=== PATIENT | female | born 1950 | race African-American/Black ===

== ENCOUNTER → 2016-04-29 | Outpatient (CLI) | payer OTHER ==
[2016-01-25 17:00] VITALS: BP 152/74
[~2016-04-29] MED LIST: AMLO10TA2 PO; ASPI81TA2 PO; ATOR40TA59 PO; CHLO25TA PO; CYCL10TA2 PO; LISI40TA PO; MELO-150 PO; METO-269 PO; MONT10TA6 PO; OMEG1CAP16 PO; POTA10TA10 PO; RANI150T2 PO
--- NOTE | 2016-04-29 13:29 | RAD ---
DATE: 04/29/16 EXAM: DIGITAL SCREEN BILAT W/CAD HISTORY: Routine screening COMPARISON: 04/14/12 This study was interpreted with the benefit of Computerized Aided Detection (CAD). TECHNIQUE: Routine CC and MLO views of both breasts are obtained. FINDINGS: The breast tissue density is [B ] . Scattered fibroglandular densities are seen bilaterally. There are no dominant suspicious masses, suspicious microcalcifications or evidence of architectural distortion. There are stable nodules in the right breast, unchanged since previous study. Skin and nipples are intact IMPRESSION: Benign findings BI-RADS CATEGORY: 2 BENIGN FINDING(S) RECOMMENDED FOLLOW-UP: 12M 12 MONTH FOLLOW-UP PQRS compliance statement: Patient information was entered into a reminder system with a target due date for the next mammogram. Mammography is a sensitive method for finding small breast cancers, but it does not detect them all and is not a substitute for careful clinical examination. A negative mammogram does not negate a clinically suspicious finding and should not result in delay in biopsying a clinically suspicious abnormality. "Our facility is accredited by the [employer] Mammography [employer]."
== END | disposition home or self-care (01) ==
LOC: MAMMO 08:40
PROVIDERS: ATTEND Physician Assistant Surgical
DX: Z12.31 Encounter for screening mammogram for malignant neoplasm of breast (principal)
CPT/HCPCS: G0202; 77067

== ENCOUNTER → 2017-03-05 | Outpatient (CLI) | payer OTHER ==
[2016-01-25 17:00] VITALS: BP 152/74
[~2017-03-05] MED LIST changes: +ASPI-630 PO; -ASPI81TA2 PO; -MELO-150 PO; +MELO15TA23 PO; -OMEG1CAP16 PO; +OMEG1CAP27 PO; -POTA10TA10 PO; +POTA10TA12 PO
--- NOTE | 2017-03-05 12:27 | CARD ---
APPROVED REPORT EXAM: Two-dimensional and M-mode echocardiogram with Doppler and color Doppler. Other Information Quality : Good INDICATION Cardiac Disease: 2D DIMENSIONS Left Atrium(2D)4.4 (1.6-4.0cm)IVSd1.4 (0.7-1.1cm) Aortic Root(2D)3.2 (2.0-3.7cm)LVDd5.7 (3.9-5.9cm) LVOT Diameter2.0 (1.8-2.4cm)PWd1.3 (0.7-1.1cm) LVDs3.8 (2.5-4.0cm)FS (%) 32.7 % SV95.5 mlLVEF(%)60.4 (>50%) Aortic Valve AoV Peak Merlin.124.9cm/sAoV VTI31.4cm AO Peak GR.6.2mmHgLVOT Peak Merlin.101.5cm/s AO Mean GR.4mmHgAVA (VMAX)2.60cm2 GURINDER (VTI)2.20cm2 Mitral Valve MV E Wtfipqyk62.2cm/sMV DECEL KMSP428fe MV A Juricipu05.9cm/sE/A Ratio0.7 Tricuspid Valve TR P. Ofykswnc347yw/sRAP UMJBRFXB8uvYu TR Peak Gr.37psOqCSPD59jkRk LEFT VENTRICLE The left ventricle is normal size. There is mild concentric left ventricular hypertrophy. Left ventri eli systolic function is normal. The Ejection Fraction is 55-60%. There is normal LV segmental wall m otion. Transmitral Doppler flow pattern is normal for age. RIGHT VENTRICLE The right ventricle is normal size. The right ventricular systolic function is normal. ATRIA The left atrium size is normal. The right atrium size is normal. The interatrial septum is intact wit h no evidence for an atrial septal defect or patent foramen ovale as noted on 2-D or Doppler imaging. AORTIC VALVE The aortic valve is calcified but opens well. Doppler and Color Flow revealed no significant aortic r egurgitation. There is no significant aortic valvular stenosis. MITRAL VALVE The mitral valve is mildly thickened. There is no evidence of mitral valve prolapse. There is no mitr al valve stenosis. Doppler and Color-flow revealed trace mitral regurgitation. TRICUSPID VALVE The tricuspid valve is normal in structure and function. Doppler and Color Flow revealed trace to mil d tricuspid regurgitation. The PA pressure was estimated at 20 mmHg. There is no tricuspid valve prol apse or vegetation. There is no tricuspid valve stenosis. PULMONIC VALVE The pulmonic valve is borderline thickened. Doppler and Color Flow revealed trace to mild pulmonic va lvular regurgitation. There is no pulmonic valvular stenosis. GREAT VESSELS The aortic root is normal in size. The ascending aorta is normal in size. The IVC is normal in size a nd collapses >50% with inspiration. PERICARDIAL EFFUSION There is no pleural effusion. There is no evidence of significant pericardial effusion. Critical Notification Critical Value: No <Conclusion> The left ventricle is normal size. Left ventricle systolic function is normal. The Ejection Fraction is 55-60%. There is mild concentric left ventricular hypertrophy. There is no significant aortic valvular stenosis. Doppler and Color Flow revealed no significant aortic regurgitation. Doppler and Color-flow revealed trace mitral regurgitation. Doppler and Color Flow revealed trace to mild tricuspid regurgitation. The PA pressure was estimated at 20 mmHg.
--- NOTE | 2017-03-05 14:44 | RAD ---
APPROVED REPORT Patient Location: OUT-PATIENT Laterality:Bilateral Indications Bruit Doppler Spectral Velocity Analysis Right Left pCCA 74/16 cm/spCCA 108/27 cm/s mCCA 85/22 cm/smCCA 86/25 cm/s dCCA 85/25 cm/sdCCA 84/26 cm/s Bulb 71/18 cm/sBulb 144/36 cm/s ECA 88/ cm/sECA 217/ cm/s pICA 63/16 cm/spICA 144/32 cm/s Carmen 47/15 cm/smICA 131/26 cm/s dICA 64/21 cm/sdICA 99/36 cm/s Vert. 73/ cm/sVert. 116/ cm/s Subcl. 97/ cm/sSubcl. 154/ cm/s ICA/CCA 0.75ICA/CCA 1.33 Findings Grayscale images of the right common carotid, internal carotid and external cart arteries reveals min imal intimal hyperplasia without any obstructive plaque. Spectral waveforms and color Doppler do not show any evidence of high-grade stenosis. Overall less than 0-50% stenosis. The grayscale images of the left common carotid and internal carotid vessels reveals moderate anthrac otic plaque at the level of the carotid bulb extending into the proximal ICA. Based on spectral wavef orms and color Doppler/velocity criteria there is approximately a 50-69% stenosis involving the proxi mal internal carotid artery. Likely the noted is also a greater than 50% stenosis involving the left external carotid artery. The bilateral vertebral artery flows are antegrade. Critical Notification Critical Value: No <Conclusion> 1. Moderate left internal cardio artery stenosis. 2. Antegrade bilateral vertebral velocities.
== END | disposition home or self-care (01) ==
LOC: ECHO 08:54
PROVIDERS: ATTEND Internal Medicine Cardiovascular Disease
DX: I25.10 Atherosclerotic heart disease of native coronary artery without angina pectoris (principal); I77.1 Stricture of artery; I51.7 Cardiomegaly; R09.89 Other specified symptoms and signs involving the circulatory and respiratory systems
CPT/HCPCS: 93306; 93880

== ENCOUNTER 2017-04-21 08:04 | Emergency (ER) | payer OTHER ==
[2017-04-21 08:53] LABS: HEMATOCRIT 40.7 % (36.0-47.0); HEMOGLOBIN 12.9 g/dL (12.0-15.5); MEAN CORPUSCULAR HEMOGLOBIN 23 pg (25-35); MEAN CORPUSCULAR HGB CONC 32 g/dL (31-37); MEAN CORPUSCULAR VOLUME 71 fL (79-100); PLATELET COUNT 239 x10^3/uL (140-400); RED BLOOD COUNT 5.74 x10^6/uL (3.50-5.40); RED CELL DISTRIBUTION WIDTH 16.2 % (11.5-14.5); WHITE BLOOD COUNT 6.5 x10^3/uL (4.0-11.0)
[2017-04-21 08:57] LABS: ANION GAP 14 (6-14); BLOOD UREA NITROGEN 12 mg/dL (7-20); BUN/CREATININE RATIO 20 (6-20); CARBON DIOXIDE 24 mmol/L (21-32); CHLORIDE 102 mmol/L (98-107); CREATININE 0.6 mg/dL (0.6-1.0); GLUCOSE 140 mg/dL (70-99); POTASSIUM 3.3 mmol/L (3.5-5.1); SODIUM 140 mmol/L (136-145)
[2017-04-21 09:03] LABS: ALBUMIN 3.7 g/dL (3.4-5.0); ALBUMIN/GLOBULIN RATIO 0.9 (1.0-1.7); ALK PHOS 111 U/L (46-116); ALT (SGPT) 30 U/L (14-59); AST (SGOT) 24 U/L (15-37); TOTAL BILIRUBIN 0.4 mg/dL (0.2-1.0)
[2017-04-21 09:04] LABS: INR 0.9 (0.8-1.1); PARTIAL THROMBOPLASTIN TIME 50 SEC (24-38); PROTHROMBIN TIME PATIENT 11.8 SEC (11.7-14.0)
[2017-04-21] MEDS: IV NORMAL SALINE 1000ML BAG 1,000 ML IV ×2 (09:10)
[2017-04-21] MEDS: LABETALOL 20 MG/4 ML DISP.SYRIN. IVP ×4 (09:12→11:05)
[2017-04-21] MEDS: POTASSIUM CHLORIDE 20 MEQ TABLET.ER. PO ×2 (11:09)
== END 2017-04-21 11:52 | disposition home or self-care (01) ==
LOC: ER 08:04
DX: I10 Essential (primary) hypertension (principal); R20.0 Anesthesia of skin
CPT/HCPCS: 36415; 70450; 71045; 80053; 85027; 85610; 85730; 93005; 96361; 96374; 99285-25; J3490; J7030

== ENCOUNTER 2017-07-04 08:11 | Emergency (ER) | payer OTHER | END 2017-07-04 08:53 | disposition home or self-care (01) | LOC: ER 08:11 | DX: I10 Essential (primary) hypertension (principal); I25.10 Atherosclerotic heart disease of native coronary artery without angina pectoris; F12.10 Cannabis abuse, uncomplicated; I25.2 Old myocardial infarction | CPT/HCPCS: 99283 ==

== ENCOUNTER 2017-08-02 15:08 | Emergency (ER) | payer OTHER ==
[2017-08-02] MEDS: IBUPROFEN 800 MG TABLET. PO (16:07)
== END 2017-08-02 17:02 | disposition home or self-care (01) ==
LOC: ER 17:02
DX: S39.012A Strain of muscle, fascia and tendon of lower back, initial encounter (principal); F12.10 Cannabis abuse, uncomplicated; I10 Essential (primary) hypertension; I25.2 Old myocardial infarction; Z86.73 Personal history of transient ischemic attack (TIA), and cerebral infarction without residual deficits; Z90.710 Acquired absence of both cervix and uterus; V43.52XA Car driver injured in collision with other type car in traffic accident, initial encounter; Y93.89 Activity, other specified; Y99.8 Other external cause status; Y92.410 Unspecified street and highway as the place of occurrence of the external cause
CPT/HCPCS: 72100; 99284

== ENCOUNTER → 2018-01-08 | Outpatient (CLI) | payer OTHER ==
[2017-08-02 15:50] VITALS: BP 125/59
[~2018-01-08] MED LIST changes: -AMLO10TA2 PO; +AMLO10TA6 PO; +HYDR-2868 PO; +LISI-130 PO; -LISI40TA PO; +LOSA100T7 PO; +METO-239 PO; +OMEP20TA63 PO
--- NOTE | 2018-01-08 11:06 | KCIC ---
EXAM: Bilateral digital screening mammogram with tomosynthesis. HISTORY: 67-year-old female presents for screening mammography. TECHNIQUE: Full-field digital craniocaudal and mediolateral oblique 2D and 3D tomosynthesis images of both breasts are obtained for evaluation. Computer aided detection with [employer] software version 9.3 was applied. COMPARISON: 04/29/2016 BREAST PARENCHYMAL DENSITY: Level B - Scattered fibroglandular densities. FINDINGS: There is no new suspicious mass, microcalcification or region of architectural distortion. IMPRESSION: BI-RADS Category 2: Benign finding(s). RECOMMENDATION: Annual mammography is recommended. If your mammogram demonstrates that you have dense breast tissue, which could hide abnormalities, and if you have other risk factors for breast cancer that have been identified, you might benefit from supplemental screening tests that may be suggested by your ordering physician. Dense breast tissue, in and of itself, is a relatively common condition. This information is not provided to cause undue concern, but rather to raise your awareness and to promote discussion with your physician regarding the presence of other risk factors, in addition to dense breast tissue. A report of your mammography results will be sent to you and your physician. You should contact your physician if you have any questions or concerns regarding this report. Mammography is a sensitive method for finding small breast cancers, but it does not detect them all and is not a substitute for careful clinical examination. A negative mammogram does not negate a clinically suspicious finding and should not result in delay in biopsying a clinically suspicious abnormality. PQRS compliance statement - Patient information was entered into a reminder system with a target due date for the next mammogram. "Our facility is accredited by the [employer] Mammography [employer]." Electronically signed by: Elsi Ervin MD (01/08/2018 11:03 AM) [facility]
--- NOTE | 2018-01-08 15:35 | KCIC ---
DEXA scan 01/08/2018 Clinical History: Postmenopausal female. Risk factors for osteoporosis. Technique: DEXA of the lumbar spine and left hip was performed. FINDINGS: No previous studies are available for comparison. The bone mineral density of the lumbar spine is 1.354 g/cm2 which corresponds with a T-score of 2.8 . This is within normal limits. The mean bone mineral density of the left hip is 0.986 g/sq cm. This corresponds to a T score of 0.4. This is within normal limits. By World Congress on Osteoporosis criteria, a T score of 0 to-1 SD is considered to be within normal limits. A T score of -1 to -2.5 SD is considered osteopenia. A T score less than -2.5 SD is considered osteoporosis Impression: The patient's mean bone mineral densities are within normal limits. Electronically signed by: Raymond Gonzalez MD (01/08/2018 3:32 PM) [facility]
== END | disposition home or self-care (01) ==
LOC: KCIC DEXA 08:38
PROVIDERS: ATTEND Physician Assistant Surgical
DX: Z12.31 Encounter for screening mammogram for malignant neoplasm of breast (principal); Z13.820 Encounter for screening for osteoporosis; F12.90 Cannabis use, unspecified, uncomplicated; Z78.0 Asymptomatic menopausal state; Z87.891 Personal history of nicotine dependence
CPT/HCPCS: 77063; 77067; 77080

== ENCOUNTER → 2018-01-27 | Outpatient (CLI) | payer OTHER ==
[2017-08-02 15:50] VITALS: BP 125/59
--- NOTE | 2018-01-27 12:17 | RAD ---
MR#: [id number] Date of Study: 01/27/2018 Ordering Physician: LILLIANA MARTINEZ, Referring Physician: LILLIANA MARTINEZ, Tech: Enrique Flores MBA, RDMS, RVT, RDCS, RTR APPROVED REPORT Patient Location: OUT-PATIENT Laterality:Bilateral Indications LT CAROTID STENOSIS Doppler Spectral Velocity Analysis Right Left pCCA 94/15 cm/spCCA 100/21 cm/s mCCA 74/16 cm/smCCA 79/20 cm/s dCCA 65/18 cm/sdCCA 79/21 cm/s Bulb 61/17 cm/sBulb 165/31 cm/s ECA 82/ cm/sECA 238/ cm/s pICA 53/17 cm/spICA 137/23 cm/s Carmen 45/15 cm/smICA 108/22 cm/s dICA 68/23 cm/sdICA 93/24 cm/s Vert. 52/ cm/sVert. 79/ cm/s Subcl. 79/ cm/sSubcl. 77/ cm/s ICA/CCA 0.72ICA/CCA 1.37 Findings Grayscale images of the bilateral common carotid, internal and external carotid reveal approximately mild and moderate bifurcation disease on the right and left respectively. Spectral waveforms and color Doppler on the right side are within normal limits and are suggestive ov erall of 0 to less than 50% stenosis by velocity criteria. ICA to CCA ratios are within normal limits . The vertebral velocity is antegrade. On the left there are elevated velocities in the carotid bifurcation suggestive of 50-69% stenosis. N o focal high-grade stenosis is noted in the common carotid and internal carotid vessels. There is lik brayan greater than 70% stenosis involving the left external carotid artery. ICA to CCA ratios are mildl y elevated on the left side. The vertebral velocity is antegrade. Critical Notification Critical Value: No <Conclusion> 1. No significant right-sided carotid arterial disease. 2. Probable moderate approximately 50-69% stenosis by velocity criteria involving the left carotid bi furcation extending into the proximal internal and external carotid vessels. Signed by : Mau Guardado, Electronically Approved : 01/27/2018 12:17:02
== END | disposition home or self-care (01) ==
LOC: US 06:33
PROVIDERS: ATTEND Internal Medicine Cardiovascular Disease
DX: I65.22 Occlusion and stenosis of left carotid artery (principal)
CPT/HCPCS: 93880

== ENCOUNTER → 2018-08-09 | Outpatient (CLI) | payer OTHER ==
[2017-08-02 15:50] VITALS: BP 125/59
[~2018-08-09] MED LIST changes: -AMLO10TA6 PO; +AMLO10TA8 PO; -CHLO25TA PO; +CHLO25TA10 PO; +LOSA100T14 PO; -LOSA100T7 PO; +REGADENOSON 0.4 MG/5 ML DISP.SYRIN. IV ONE
--- NOTE | 2018-08-09 14:09 | RAD ---
MR#: [id number] Date of Study: 08/09/2018 Ordering Physician: LILLIANA MARTINEZ Referring Physician: REJI YORK Tech: RT Andree (R) (N) APPROVED REPORT Test Type: Pharmacological Stress Nurse/Tech: Pedro SUN Test Indications: Coronary Artery Disease Cardiac History: Cardiac cath in 1999 w/ 3 stents placed, HTN, See EMR Medications: ASA 81mg, See EMR Medical History: DM, X-Smoker quit 22 yrs ago Resting ECG: SR w/ prolonged CT interval Resting Heart Rate: 54 bpm Resting Blood Pressure: 133/76mmHg Pretest Chest Pain: No chest pain Nurse/Tech Notes Lungs CTA, Heart tones Regular. Consent: The procedure was explained to the patient in lay terms. Informed consent was witnessed. Kayode eout was entered into [employer]. History and Stress Test performed by ANDREA Mauricio Pharm. Details Pharmacologic stress testing was performed using 0.4mg per 5ml of regadenoson given intravenously ove r 7-10 seconds. Stress Symptoms Nausea POST EXERCISE Reason for Termination: Infusion complete Max HR: 93 bpm Max Blood Pressure: 146/73mmHg Blood Pressure response to exercise: Normal blood pressure response during stress. Chest Pain: No. Arrhythmia: No. ST Change: No. INTERPRETATION Stress EKG Conclusion: The resting EKG shows a mild sinus bradycardia with mild nonspecific ST-T wave changes. Stress EKG shows no significant changes from baseline. No EKG evidence of stressed induced ischemia. Imaging Protocol IMAGE PROTOCOL: Rest Tc-99m/stress Tc-99m 1 day Rest: Stress: Viability: Radiopharm.Tc99m FngvunmrfLr46v Sestamibi Dose9.5mCi 33mCi Duration 15min. 10min. Img Date 08/09/2018 08/09/2018 Inj-Img Ogrk56lwf. 45min. Rest Admin Site:IV - Right AntecubitalAdministrator:RT Andree (R)(N) Stress Admin Site: IV - Right AntecubitalAdministrator: ANDREA Mauricio STRESS DATA End Diast. Vol.106.0mlAv. Heart Rate66.0bpm End Syst. Vol.28.0mlCO Index BSA0.0L/min Myocardial Hjyf363.0gEject. Ntyxnexm17.0% Stress Rates Pk. Fill Rate2.60EDV/secLVtime Pk. Fill 238.79msec Pk. Empty Rate3.54ESV/secLVtime Pk. Icnes156.85msec 1/3 Pk. Fill1.09EDV/sec Stress Scores Regional WT0.00Summed WT7.00 Regional WM0.00Summed WM0.00 LV Perfusion Stress scans showed no significant defects. Rest scans showed no significant defects. Nuclear imaging shows no reversible ischemia or infarct. Wall Motion Left ventricular systolic function is normal with no wall motion abnormalities and an ejection fracti on of greater than 70%. LV Perf. Quant 17 Seg. SSS0.00 17 Seg. SRS0.00 17 Seg. SDS0.00 Stress Defect Extent (% LAD)0.00Rest Defect Extent (% LAD)0.00Rev. Defect Extent (% LAD)0.00 Stress Defect Extent (% LCX) 0.00Rest Defect Extent (% LCX)0.00Rev. Defect Extent (% LCX)0.00 Stress Defect Extent (% RCA)0.00Rest Defect Extent (% RCA)0.00Rev. Defect Extent (% RCA)0.00 Stress Defect Extent (% ELICEO)0.00Rest Defect Extent (% ELICEO)0.00Rev. Defect Extent (% ELICEO)0.00 Conclusion 1. Mildly abnormal baseline EKG but no EKG evidence of stressed induced ischemia. 2. Nuclear imaging shows no reversible ischemia or infarct. 3. Normal left ventricular systolic function with an ejection fraction of greater than 70%. 4. Moderately low risk Lexiscan nuclear stress test. Signed by : Tripp Toro MD Electronically Approved : 08/09/2018 14:08:30
== END | disposition home or self-care (01) ==
LOC: NM 06:51
PROVIDERS: ATTEND Internal Medicine Cardiovascular Disease
DX: R00.1 Bradycardia, unspecified (principal); I10 Essential (primary) hypertension; I25.10 Atherosclerotic heart disease of native coronary artery without angina pectoris; Z95.818 Presence of other cardiac implants and grafts; Z87.891 Personal history of nicotine dependence
CPT/HCPCS: 78452; 93017; A9500; J2785

== ENCOUNTER → 2018-08-09 | Outpatient (CLI) | payer OTHER ==
[2017-08-02 15:50] VITALS: BP 125/59
[~2018-08-09] MED LIST changes: -REGADENOSON 0.4 MG/5 ML DISP.SYRIN. IV ONE
--- NOTE | 2018-08-09 14:41 | CARD ---
MR#: [id number] Date of Study: 08/09/2018 Ordering Physician: LILLIANA MARTINEZ, Referring Physician: LILLIANA MARTINEZ Tech: Anna Oh RDCS APPROVED REPORT EXAM: Two-dimensional and M-mode echocardiogram with Doppler and color Doppler. Other Information Quality : Good INDICATION Cardiac Disease: CAD 2D DIMENSIONS RVDd3.1 (2.9-3.5cm)Left Atrium(2D)3.4 (1.6-4.0cm) IVSd0.9 (0.7-1.1cm)Aortic Root(2D)3.2 (2.0-3.7cm) LVDd5.4 (3.9-5.9cm)LVOT Diameter2.2 (1.8-2.4cm) PWd0.8 (0.7-1.1cm)LVDs4.2 (2.5-4.0cm) FS (%) 30.0 %SV65.9 ml Aortic Valve AoV Peak Merlin.146.1cm/sAoV VTI30.0cm AO Peak GR.8.5mmHgLVOT Peak Merlin.110.0cm/s LVOT VTI 23.89cmAO Mean GR.4mmHg GURINDER (VMAX)2.80hx5GXT (VTI)2.94cm2 Mitral Valve MV E Goequcws10.4cm/sMV DECEL JGVR960px MV A Dstixbil90.4cm/sMV OHO63xz E/A Ratio0.8MVA (PHT)3.19cm2 TDI E/Lateral E'12.2E/Medial E'15.6 Tricuspid Valve TR P. Sgjeuhyh027bl/sRAP XNNCEGJQ9zaZg TR Peak Gr.20mfWtOVSP77xfDy Pulmonary Vein S1 Mhamlhti26.8cm/sD2 Bgewvvgi42.4cm/s LEFT VENTRICLE The left ventricle is normal size. There is normal left ventricular wall thickness. The left ventricu lar systolic function is normal and the ejection fraction is within normal range. The Ejection Fracti on is 50-55%. There is normal LV segmental wall motion. Transmitral Doppler flow pattern is Grade I-a bnormal relaxation pattern. RIGHT VENTRICLE The right ventricle is normal size. The right ventricular systolic function is normal. ATRIA The left atrium size is normal. The right atrium size is normal. The interatrial septum is intact wit h no evidence for an atrial septal defect or patent foramen ovale as noted on 2-D or Doppler imaging. AORTIC VALVE The aortic valve is calcified but opens well. Doppler and Color Flow revealed no significant aortic r egurgitation. There is no significant aortic valvular stenosis. MITRAL VALVE The mitral valve is normal in structure and function. There is no evidence of mitral valve prolapse. There is no mitral valve stenosis. Doppler and Color-flow revealed trace mitral regurgitation. TRICUSPID VALVE The tricuspid valve is normal in structure and function. Doppler and Color Flow revealed trace tricus pid regurgitation. The PA pressure was estimated at 22 mmHg. There is no tricuspid valve stenosis. PULMONIC VALVE The pulmonic valve is not well visualized. Doppler and Color Flow revealed no pulmonic valvular regur gitation. There is no pulmonic valvular stenosis. GREAT VESSELS The aortic root is normal in size. The ascending aorta is mildly dilated at 3.4 cm. The IVC is normal in size and collapses >50% with inspiration. PERICARDIAL EFFUSION There is no evidence of significant pericardial effusion. Critical Notification Critical Value: No <Conclusion> The left ventricle is normal size. The left ventricular systolic function is normal and the ejection fraction is within normal range. The Ejection Fraction is 50-55%. There is no significant aortic valvular stenosis. Doppler and Color Flow revealed no significant aortic regurgitation. Doppler and Color-flow revealed trace mitral regurgitation. Doppler and Color Flow revealed trace tricuspid regurgitation. The PA pressure was estimated at 22 mmHg. The ascending aorta is mildly dilated at 3.4 cm. Signed by : Tripp Toro MD Electronically Approved : 08/09/2018 14:40:36
== END | disposition home or self-care (01) ==
LOC: ECHO 07:14
PROVIDERS: ATTEND Internal Medicine Cardiovascular Disease
DX: I35.8 Other nonrheumatic aortic valve disorders (principal); I25.10 Atherosclerotic heart disease of native coronary artery without angina pectoris
CPT/HCPCS: 93306

== ENCOUNTER 2020-01-09 08:22 | Emergency (ER) | payer OTHER ==
[~2020-01-09] VITALS: Ht 162.6 cm; Wt 68.2 kg
[~2020-01-09 08:22] MED LIST changes: +AMLO-187 PO; -AMLO10TA8 PO; +MONT10TA49 PO; -MONT10TA6 PO; +POTASSIUM CHLO10 ME1 PO
--- NOTE | 2020-01-09 08:34 | PHYS DOC ---
Past Medical History Past Medical History: CAD, Hypertension, OK, Other Additional Past Medical Histor: VITILIGO Past Surgical History: Hysterectomy, Other Additional Past Surgical Histo: cardiac cath with stents Smoking Status: Former Smoker Alcohol Use: Occasionally Drug Use: Marijuana General Adult EDM: Chief Complaint: SHOULDER INJURY HPI: HPI: Patient is a 69 year old female who presents with a 2-day history of left shoulder pain. Patient states she fell into a mailbox while trying to catch her grandchild who about to fall into a mailbox 2 days ago and now has 10 out of 10 throbbing pain in the left shoulder radiates down the arm and is worse with range of motion. Patient denies hitting her head or having loss of conscious. Patient denies being on blood thinners. Patient denies any other injuries. Review of Systems: Review of Systems: Constitutional: Denies fever or chills. [] Eyes: Denies change in visual acuity. [] HENT: Denies nasal congestion or sore throat. [] Respiratory: Denies cough or shortness of breath. [] Cardiovascular: Denies chest pain or edema. [] GI: Denies abdominal pain, nausea, vomiting, bloody stools or diarrhea. [] : Denies dysuria. [] Musculoskeletal: Denies back pain but has left shoulder pain Integument: Denies rash. [] Neurologic: Denies headache, focal weakness or sensory changes. [] Endocrine: Denies polyuria or polydipsia. [] Lymphatic: Denies swollen glands. [] Psychiatric: Denies depression or anxiety. [] Heart Score: Risk Factors: Risk Factors: DM, Current or recent (<one month) smoker, HTN, HLP, family history of CAD, obesity. Risk Scores: Score 0 - 3: 2.5% MACE over next 6 weeks - Discharge Home Score 4 - 6: 20.3% MACE over next 6 weeks - Admit for Clinical Observation Score 7 - 10: 72.7% MACE over next 6 weeks - Early Invasive Strategies Allergies: Allergies: Allergies Coded Allergies Type Severity Reaction Last Updated Verified No Known Drug Allergies 01/25/16 No Physical Exam: PE: Constitutional: Well developed, well nourished, no acute distress, non-toxic appearance. [] HENT: Normocephalic, atraumatic, bilateral external ears normal, no trismus, nose normal. [] Eyes: PERRLA, EOMI, conjunctiva normal, no discharge. [] Neck: Normal range of motion, no tenderness, supple, no stridor. [] Cardiovascular:Heart rate regular rhythm, peripheral pulse intact cap refill is brisk Lungs & Thorax: Bilateral breath sounds clear, no respiratory distress Abdomen:soft, no tenderness, no masses, no pulsatile masses. [] Skin: Warm, dry, no erythema, vitiligo on chest Back: No tenderness, no CVA tenderness. [] Extremities: Tenderness to the left shoulder with limited range of motion due to pain, neurovascular intact distally Neurologic: Alert and oriented X 3, normal motor function, normal sensory function, no focal deficits noted. [] Psychologic: Affect normal, judgement normal, mood normal. [] EKG: EKG: [] Radiology/Procedures: Radiology/Procedures: [][facility] [address] [place] [address] IMAGING REPORT Signed PATIENT: MONET TURNER ACCOUNT: [id number] : 1950 LOCATION: ER AGE: 69 SEX: F EXAM STATUS: REG ER ORD. PHYSICIAN: NIKKO DALEY MD REASON: fall, shoulder pain PROCEDURE: SHOULDER 2+V LEFT 3 view left shoulder HISTORY: Pain after fall Internally and externally rotated AP views left shoulder and Y-view The glenohumeral relationship is normal. The visualized osseous structures appear normal. The heart appears mildly enlarged and there is patchy opacity in the left lung base. IMPRESSION: 1. No acute findings of the shoulder. 2. Possible cardiomegaly and CHF. Clinical correlation is suggested. Electronically signed by: Navi Nichole III, MD (01/09/2020 8:55 AM) [id number] DICTATED and SIGNED BY: NAVI NICHOLE III, MD DATE: 01/09/20 0855 Course & Med Decision Making: Course & Med Decision Making 69-year-old female with mechanical fall left shoulder injury. X-rays are negative. Most likely to ligamentous versus muscular injury. Patient be treated with pain medicines and Ortho follow-up. Return precautions given, sling has been ordered. pertinent Labs and Imaging studies reviewed. (See chart for details) [] Dragon Disclaimer: Osito Disclaimer: This electronic medical record was generated, in whole or in part, using a voice recognition dictation system. Departure Departure Impression: Primary Impression: Contusion of left shoulder Disposition: 01 DC HOME SELF CARE/HOMELESS Condition: STABLE Referrals: Zulay RICE MD (PCP) IBRAHIMA HESTER MD 2-3 days Patient Instructions: Arm Sling Use-Brief, Contusion, Shoulder Sprain Additional Instructions: EMERGENCY DEPARTMENT GENERAL DISCHARGE INSTRUCTIONS THANK YOU for coming to [facility] Emergency Department (ED) today and trusting us with your care. We trust that you had a positive experience in our Emergency Department. If you wish to speak to the department Management you can contact the humanities department chair at . YOUR FOLLOW UP INSTRUCTIONS ARE FOLLOWS: Do you have a private doctor? If you do not have a private doctor, please ask for a resource list of physicians or clinics that may be able to assist you with follow up care. The Emergency Physician has interpreted your x-rays. The X-ray specialist will also review them. If there is a change in the findings you will be notified in 48 hours when at all possible. A lab test or lab culture may have been done, your results will be reviewed and you will be notified if you need a change in treatment. ADDITIONAL INSTRUCTIONS AND INFORMATION Your care today has been supervised by a physician who is specially trained in emergency care. Many problems require more than one evaluation for a complete diagnosis and treatment. We recommend that you schedule your follow up appointment as recommended to ensure complete treatment of your illness or injury. If you are unable to obtain follow up care and continue to have a problem, or if your condition worsens we recommend that you return to the ED. We are not able to safely determine your condition over the phone nor are we able to give sound medical advice over the phone. For these safety reasons, if you call for m edical advice we will ask you to come to the ED for further evaluation If you have any questions regarding these discharge instructions please call the ED at . SAFETY INFORMATION In the interest of safety, wellness, and injury prevention; we encourage you to wear your seatbelt, if you smoke; quit smoking, and we encourage your family to use protective helmet for bicycling and other sporting events that present an increased risk for head injury. IF YOUR SYMPTOMS WORSEN OR NEW SYMPTOMS DEVELOP, OR YOU HAVE CONCERNS ABOUT YOUR CONDITION; OR IF YOUR CONDITION WORSENS WHILE YOU ARE WAITING FOR YOUR FOLLOW UP APPOI NTMENT; EITHER CONTACT YOUR PRIMARY CARE DOCTOR, THE PHYSICIAN WHOSE NAME AND NUMBER YOU WERE GIVEN, OR RETURN TO THE ED IMMEDIATELY. Scripts Hydrocodone/Apap 5-325 (NORCO 5-325 TABLET) 1 Each Tablet 1-2 EACH PO PRN Q6HRS PRN for PAIN, #15 as needed for pain Prov: NIKKO DALEY MD 01/09/20 NIKKO DALEY MD Jan 09, 2020 08:34
[2020-01-09 08:45] VITALS: BP 189/88
--- NOTE | 2020-01-09 08:59 | RAD ---
3 view left shoulder HISTORY: Pain after fall Internally and externally rotated AP views left shoulder and Y-view The glenohumeral relationship is normal. The visualized osseous structures appear normal. The heart appears mildly enlarged and there is patchy opacity in the left lung base. IMPRESSION: 1. No acute findings of the shoulder. 2. Possible cardiomegaly and CHF. Clinical correlation is suggested. Electronically signed by: Munir Kimble III, MD (01/09/2020 8:55 AM) [id number]
[2020-01-09] MEDS ORDERED: HYDR-3164 PO (09:25)
== END 2020-01-09 09:31 | disposition home or self-care (01) ==
LOC: ER 08:22
DX: S40.012A Contusion of left shoulder, initial encounter (principal); I10 Essential (primary) hypertension; I25.10 Atherosclerotic heart disease of native coronary artery without angina pectoris; I25.2 Old myocardial infarction; Z87.891 Personal history of nicotine dependence; Z95.5 Presence of coronary angioplasty implant and graft; W18.39XA Other fall on same level, initial encounter; Y93.89 Activity, other specified; Y92.89 Other specified places as the place of occurrence of the external cause; Y99.8 Other external cause status
CPT/HCPCS: 73030; 99284; A4565

== ENCOUNTER 2020-11-15 09:12 | Observation (INO) | payer OTHER ==
[~2020-11-15] VITALS: Ht 162.6 cm; Wt 68.1 kg
[~2020-11-15 09:12] MED LIST changes: +HYDR-3164 PO
--- NOTE | 2020-11-15 09:32 | PHYS DOC ---
Past Medical History Past Medical History: CAD, Hypertension, ID, Other Additional Past Medical Histor: VITILIGO Past Surgical History: Hysterectomy, Other Additional Past Surgical Histo: cardiac cath with stents Smoking Status: Former Smoker Alcohol Use: Occasionally Drug Use: Marijuana General Adult EDM: Chief Complaint: CHEST PAIN HPI: HPI: Patient is a 70 year old female who present to ER for evaluation of chest pain, described as heaviness and pressure in the substernal area since last night. Patient has history of hypertension, coronary artery disease. Patient denies any cough or fever. Patient was vaccinated for COVID-19 in August. Patient denies any trouble breathing, denies any abdominal pain but she did have some nausea and vomiting this morning. Patient denies any diarrhea. Review of Systems: Review of Systems: Constitutional: Denies fever or chills. [] Eyes: Denies change in visual acuity. [] HENT: Denies nasal congestion or sore throat. [] Respiratory: Denies cough or shortness of breath. [] Cardiovascular: Positive for chest pain, no edema [] GI: Denies abdominal pain, positive for nausea vomiting, no diarrhea : Denies dysuria. [] Musculoskeletal: Denies back pain or joint pain. [] Integument: Denies rash. [] Neurologic: Denies headache, focal weakness or sensory changes. [] Endocrine: Denies polyuria or polydipsia. [] Lymphatic: Denies swollen glands. [] Psychiatric: Denies depression or anxiety. [] Heart Score: C/O Chest Pain: Yes HEART Score for Chest Pain: HEART Score for Chest Pain Response (Comments) Value History Moderately Suspicious 1 ECG Nonspecific Repolarizatio 1 Age > 65 2 Risk Factors >3 Risk Factors or Hx CAD 2 Troponin < Normal Limit 0 Total 6 Risk Factors: Risk Factors: DM, Current or recent (<one month) smoker, HTN, HLP, family history of CAD, obesity. Risk Scores: Score 0 - 3: 2.5% MACE over next 6 weeks - Discharge Home Score 4 - 6: 20.3% MACE over next 6 weeks - Admit for Clinical Observation Score 7 - 10: 72.7% MACE over next 6 weeks - Early Invasive Strategies Allergies: Allergies: Allergies Coded Allergies Type Severity Reaction Last Updated Verified No Known Drug Allergies 01/25/16 No Physical Exam: PE: Constitutional: Well developed, well nourished, no acute distress, non-toxic appearance. [] HENT: Normocephalic, atraumatic, bilateral external ears normal, oropharynx moist, no oral exudates, nose normal. [] Eyes: PERRLA, EOMI, conjunctiva normal, no discharge. [] Neck: Normal range of motion, no tenderness, supple, no stridor. [] Cardiovascular:Heart rate regular rhythm, no murmur [] Lungs & Thorax: Bilateral breath sounds clear to auscultation [] Abdomen: Bowel sounds normal, soft, no tenderness, no masses, no pulsatile masses. [] Skin: Warm, dry, no erythema, no rash. [] Back: No tenderness, no CVA tenderness. [] Extremities: No tenderness, no cyanosis, no clubbing, ROM intact, no edema. [] Neurologic: Alert and oriented X 3, normal motor function, normal sensory function, no focal deficits noted. [] Psychologic: Affect normal, judgement normal, mood normal. [] Current Patient Data: Labs: Laboratory Tests Test 11/15/20 09:24 11/15/20 10:09 White Blood Count 6.4 x10^3/uL Red Blood Count 5.41 x10^6/uL Hemoglobin 12.1 g/dL Hematocrit 37.6 % Mean Corpuscular Volume 70 fL Mean Corpuscular Hemoglobin 22 pg Mean Corpuscular Hemoglobin Concent 32 g/dL Red Cell Distribution Width 16.7 % Platelet Count 236 x10^3/uL Neutrophils (%) (Auto) 39 % Lymphocytes (%) (Auto) 47 % Monocytes (%) (Auto) 11 % Eosinophils (%) (Auto) 2 % Basophils (%) (Auto) 1 % Neutrophils # (Auto) 2.5 x10^3/uL Lymphocytes # (Auto) 3.0 x10^3/uL Monocytes # (Auto) 0.7 x10^3/uL Eosinophils # (Auto) 0.1 x10^3/uL Basophils # (Auto) 0.1 x10^3/uL Platelet Estimate Pending Sodium Level 143 mmol/L Potassium Level 3.2 mmol/L Chloride Level 102 mmol/L Carbon Dioxide Level 28 mmol/L Anion Gap 13 Blood Urea Nitrogen 13 mg/dL Creatinine 0.7 mg/dL Estimated GFR (Cockcroft-Gault) 100.1 BUN/Creatinine Ratio 19 Glucose Level 94 mg/dL Calcium Level 9.7 mg/dL Magnesium Level 1.9 mg/dL Total Bilirubin 0.4 mg/dL Aspartate Amino Transf (AST/SGOT) 17 U/L Alanine Aminotransferase (ALT/SGPT) 24 U/L Alkaline Phosphatase 68 U/L Troponin I Quantitative < 0.017 ng/mL NI-Kkr-M-Type Natriuretic Peptide 319 pg/mL Total Protein 7.4 g/dL Albumin 3.8 g/dL Albumin/Globulin Ratio 1.1 Lipase 105 U/L SARS-CoV-2 Antigen (Rapid) Negative Current Medications Medications (Trade) Dose Ordered Sig/Audrey Route PRN Reason Start Time Stop Time Status Last Admin Dose Admin Nitroglycerin (Nitrostat) 0.4 mg PRN Q5MIN PRN SL CHEST PAIN 11/15/20 09:45 11/15/20 10:03 Potassium Chloride (Klor-Con) 40 meq 1X ONCE PO 11/15/20 10:30 11/15/20 10:31 DC Potassium Phosphate (K-Phos Original) 500 mg 1X PO 11/15/20 11:15 EKG: EKG: EKG was done at 918, heart rate of 54 bpm, sinus rhythm, no ST segment elevatio n, prolonged NH interval. Radiology/Procedures: Radiology/Procedures: [][facility] [address] [place], [place] [id number] IMAGING REPORT Signed PATIENT: MONET TURNER ACCOUNT: [id number] : 1950 LOCATION: ER AGE: 70 SEX: F EXAM STATUS: REG ER ORD. PHYSICIAN: LEANNA KESSLER DO REASON: chest pain PROCEDURE: PORTABLE CHEST 1V XR CHEST 1V History: Chest pain. Comparison: 06/14/2017 Technique: Portable AP radiograph of the chest. Findings: The lungs are adequately inflated. No focal airspace consolidation, pleural effusion or pneumothorax. Diffuse prominence of pulmonary interstitial markings and vasculature. Cardiac silhouette is borderline enlarged. Calcifications of the aortic arch. Degenerative changes of the shoulders. Soft tissues are unremarkable. Impression: 1. Borderline enlarged cardiac silhouette with prominence of vasculature and interstitium may represent interstitial edema/vascular congestion. 2. No focal airspace consolidation. Electronically signed by: Mitchell Noe MD (11/15/2020 10:44 AM) [id number] DICTATED and SIGNED BY: MITCHELL NOE MD DATE: 11/15/20 [id number] 0 Course & Med Decision Making: Course & Med Decision Making Pertinent Labs and Imaging studies reviewed. (See chart for details) Patient is a 70-year-old female who presented to ER due to substernal chest pain, patient was given nitroglycerin in the ED, she feels much better. Her lab work and EKG did not show any acute problem so far. Patient will be admitted to hospital for further evaluation. Dragon Disclaimer: Dragon Disclaimer: This electronic medical record was generated, in whole or in part, using a voice recognition dictation system. Departure Departure Impression: Primary Impression: Chest pain Disposition: ADMITTED INPATIENT Admitting Physician: JACQUELINE (Dr. Matthew) Condition: IMPROVED Referrals: Zulay RICE MD (PCP) LEANNA KESSLER DO Nov 15, 2020 09:32
[2020-11-15] MEDS ORDERED: NITROGLYCERIN SUBLINGUAL 0.4 MG BOTTLE OF 25. SL PRN (09:45)
[2020-11-15 09:48] LABS: CALCIUM 9.7 mg/dL (8.5-10.1); CREATININE 0.7 mg/dL (0.6-1.0); GFR 100.1; POTASSIUM 3.2 mmol/L (3.5-5.1)
[2020-11-15 09:53] LABS: ALBUMIN 3.8 g/dL (3.4-5.0); ALBUMIN/GLOBULIN RATIO 1.1 (1.0-1.7); MAGNESIUM 1.9 mg/dL (1.8-2.4); TOTAL BILIRUBIN 0.4 mg/dL (0.2-1.0); TOTAL PROTEIN 7.4 g/dL (6.4-8.2)
[2020-11-15 09:57] LABS: BASO # 0.1 x10^3/uL (0.0-0.2); BASO % 1 % (0-3); EOS # 0.1 x10^3/uL (0.0-0.7); EOS % 2 % (0-3); HEMATOCRIT 37.6 % (36.0-47.0); HEMOGLOBIN 12.1 g/dL (12.0-15.5); LYMPH % 47 % (24-48); MEAN CORPUSCULAR HEMOGLOBIN 22 pg (25-35); MEAN CORPUSCULAR HGB CONC 32 g/dL (31-37); MEAN CORPUSCULAR VOLUME 70 fL (79-100); MONO # 0.7 x10^3/uL (0.0-1.1); MONO % 11 % (0-9); NEUT # 2.5 x10^3/uL (1.8-7.7); NEUT % 39 % (31-73); PLATELET COUNT 236 x10^3/uL (140-400); RED BLOOD COUNT 5.41 x10^6/uL (3.50-5.40); RED CELL DISTRIBUTION WIDTH 16.7 % (11.5-14.5); WHITE BLOOD COUNT 6.4 x10^3/uL (4.0-11.0)
[2020-11-15] MEDS ORDERED: POTASSIUM CHLORIDE 20 MEQ TABLET.ER. PO ONE ×2 (10:30→11:30)
--- NOTE | 2020-11-15 10:47 | RAD ---
XR CHEST 1V History: Chest pain. Comparison: 06/14/2017 Technique: Portable AP radiograph of the chest. Findings: The lungs are adequately inflated. No focal airspace consolidation, pleural effusion or pneumothorax. Diffuse prominence of pulmonary interstitial markings and vasculature. Cardiac silhouette is borderl ine enlarged. Calcifications of the aortic arch. Degenerative changes of the shoulders. Soft tissues are unremarkable. Impression: 1. Borderline enlarged cardiac silhouette with prominence of vasculature and interstitium may repres ent interstitial edema/vascular congestion. 2. No focal airspace consolidation. Electronically signed by: Mitchell Quinn MD (11/15/2020 10:44 AM) [id number]
[2020-11-15] MEDS ORDERED: POTASSIUM PHOSPHATE,MONOBASIC 500 MG TABLET. PO SCH (11:15)
[2020-11-15] MEDS ORDERED: ASPIRIN 325 MG TABLET PO ONE (11:15)
--- NOTE | 2020-11-15 11:20 | PDOC1 ---
History and Physical Date of Admission Date of Admission DATE: 11/15/20 TIME: 11:19 Identification/Chief Complaint Chief Complaint ANGINA, WORSE TODAY History of Present Illness History of Present Illness 70 year old female who presented to ER for evaluation of chest pain, described as heaviness and pressure in the substernal area since last night. , has had some discomfort x 2 weeks / known history of hypertension, coronary artery disease. / denies any cough or fever. vaccinated for COVID-19 in August 2020. /denies trouble breathing, denies abdominal pain // did have some nausea, pain better with SL NITRO IN ER K = 3.2 IN ER hx Coronary artery disease s/p PCI/stent to RCA, troponin i neg x 1 Hyperlipidemia: Continue statin therapy, htn bp UNCONTROLLED IN ER Past Medical History Past Medical History Past Medical History Past Medical History: CAD, Hypertension, LA, Other Additional Past Medical Histor: VITILIGO Past Surgical History: Hysterectomy, Other Additional Past Surgical Histo: cardiac cath with stents Smoking Status: Former Smoker Alcohol Use: Occasionally Drug Use: Marijuana mother age 87 CAD Cardiovascular: HTN, Hyperlipidemia Musculoskeletal: Osteoarthritis Endocrine: Diabetes Past Surgical History Past Surgical History: No pertinent history Family History Family History: Coronary Artery Disease, Hypertension Social History Smoke: Quit ALCOHOL: none Drugs: Marijuana Current Problem List Problem List Problems Medical Problems: (1) Chest pain Status: Acute Current Medications Current Medications Current Medications Nitroglycerin (Nitrostat) 0.4 mg PRN Q5MIN PRN SL CHEST PAIN Last administered on 11/15/20at 10:03; Start 11/15/20 at 09:45 Potassium Chloride (Klor-Con) 40 meq 1X ONCE PO ; Start 11/15/20 at 10:30; Stop 11/15/20 at 10:31; Status DC Potassium Phosphate (K-Phos Original) 500 mg 1X PO Last administered on 11/15/20at 11:00; Start 11/15/20 at 11:15 Aspirin (Alejandra Aspirin) 325 mg 1X ONCE PO ; Start 11/15/20 at 11:15; Stop 11/15/20 at 11:16; Status DC Active Scripts Active [place] 5-325 Tablet (Acetaminophen/Hydrocodone Bitart) 1 Each Tablet 1-2 Each PO PRN Q6HRS PRN as needed for pain Potassium Chloride (Potassium Chloride) 10 Meq Tab.sr.24h 10 Meq PO DAILY Metoprolol Succinate ( Xl ) (Metoprolol Succinate) 25 Mg Tab.er.24h 3 Tab PO DAILY 20 Days Reported Toprol Xl (Metoprolol Succinate) 50 Mg Tab.er.24h 50 Mg PO DAILY Prilosec Otc (Omeprazole Magnesium) 20 Mg Tablet.dr 20 Mg PO DAILY Hydralazine Hcl 25 Mg Tablet 1 Tab PO TID Losartan Potassium 100 Mg Tablet 100 Mg PO HS Fish Oil 1,000 Mg Softgel ([place]-3 Fatty Acids/Fish Oil) 1 Each Capsule 1 Each PO Aspirin 81 Mg Tab.chew 1 Tab PO DAILY Cyclobenzaprine Hcl 10 Mg Tablet 1 Tab PO QHS Atorvastatin Calcium 40 Mg Tablet 1 Tab PO DAILY Singulair Tablet (Montelukast Sodium) 10 Mg Tablet 1 Tab PO DAILY Chlorthalidone (Chlorthalidone) 25 Mg Tablet 1 Tab PO DAILY Ranitidine Hcl 150 Mg Tablet 1 Tab PO BID Allergies Allergies: Coded Allergies: No Known Drug Allergies (Unverified , 01/25/16) ROS Review of System 14 point ROS was completed with the following noted as positive:/ OTHERWISE NEG Other systems reviewed and negative. \CONSTITUTIONAL: No fever or chills EYES: No recent changes SKIN: No rash or itching CARDIOVASCULAR: chest pain, NO syncope, palpitations, or edema NOT RELATED TO MEALS RESPIRATORY: No SOB or cough GASTROINTESTINAL: No nausea, vomiting or abdominal pain NEUROLOGICAL: No headaches or weakness ENDOCRINE: No cold or heat intolerance GENITOURINARY: No urgency or frequency of urination MUSCULOSKELETAL: No back pain or joint pain LYMPHATICS: No enlarged lymph nodes PSYCHIATRIC: No anxiety or depression Cardiovascular: yes Chest Pain; No Palpitations, No Orthopnea, No Paroxysmal Noc. Dyspnea, No Edema, No Lt Headedness, No Other Gastrointestinal: Yes Nausea; No Vomiting, No Abdominal Pain, No Diarrhea, No Constipation, No Melena, No Hematochezia, No Other Musculoskeletal: No Gait Disturbance, No Joint Pain, No Joint Stiffness, No Joint Swelling, No Muscle Pain, No Muscular Weakness, No Pain In:, No Swelling I n:, No Other Neurological: No Behavorial Changes, No Bowel/Bladder ControlChng, No Confusion, No Dizziness, No Gait Disturbance, No Headaches, No Impaired Coord/balance, No Memory Loss, No Numbness/Tingling, No Seizures, No Speech Pro blems, No Tremors, No Visual Changes, No Weakness, No Other Physical Exam Physical Exam Constitutional: Well developed, well nourished, no acute distress, non-toxic appearance. [] HENT: Normocephalic, atraumatic, bilateral external ears normal, oropharynx moist, no oral exudates, nose normal. [] Eyes: PERRLA, EOMI, conjunctiva normal, no discharge. [] Neck: Normal range of motion, no tenderness, supple, no stridor. [] Cardiovascular:Heart rate regular rhythm, no murmur [] Lungs & Thorax: Bilateral breath sounds clear to auscultation [] Abdomen: Bowel sounds normal, soft, no tenderness, no masses, no pulsatile masses. [] Skin: Warm, dry, no erythema, no rash. [] vitiligo pos Back: No tenderness, no CVA tenderness. [] Extremities: No tenderness, no cyanosis, no clubbing, ROM intact, no edema. [] Neurologic: Alert and oriented X 3, normal motor function, normal sensory function, no focal deficits noted. [] Psychologic: Affect normal, judgment normal, mood normal. [] General: Alert, Oriented X3, Cooperative HEENT: EOMI, Mucous membr. moist/pink Lungs: Clear to auscultation, Normal air movement Heart: RRR Breasts: Not examined Abdomen: Normal bowel sounds, Soft Rectal Exam: not examined PELVIC: Examination not indicated Extremities: No cyanosis Neuro: Normal speech, Sensation intact, Cranial nerves 3-12 NL Psych/Mental Status: Mental status NL, Mood NL Vitals Vitals Vital Signs Date Time Temp Pulse Resp B/P (MAP) Pulse Ox O2 Delivery O2 Flow Rate FiO2 11/15/20 10:03 50 181/80 11/15/20 09:15 98.7 16 99 Room Air 98.7 Labs Labs Laboratory Tests Test 11/15/20 09:24 11/15/20 10:09 White Blood Count 6.4 x10^3/uL (4.0-11.0) Red Blood Count 5.41 x10^6/uL (3.50-5.40) Hemoglobin 12.1 g/dL (12.0-15.5) Hematocrit 37.6 % (36.0-47.0) Mean Corpuscular Volume 70 fL (79-100) Mean Corpuscular Hemoglobin 22 pg (25-35) Mean Corpuscular Hemoglobin Concent 32 g/dL (31-37) Red Cell Distribution Width 16.7 % (11.5-14.5) Platelet Count 236 x10^3/uL (140-400) Neutrophils (%) (Auto) 39 % (31-73) Lymphocytes (%) (Auto) 47 % (24-48) Monocytes (%) (Auto) 11 % (0-9) Eosinophils (%) (Auto) 2 % (0-3) Basophils (%) (Auto) 1 % (0-3) Neutrophils # (Auto) 2.5 x10^3/uL (1.8-7.7) Lymphocytes # (Auto) 3.0 x10^3/uL (1.0-4.8) Monocytes # (Auto) 0.7 x10^3/uL (0.0-1.1) Eosinophils # (Auto) 0.1 x10^3/uL (0.0-0.7) Basophils # (Auto) 0.1 x10^3/uL (0.0-0.2) Sodium Level 143 mmol/L (136-145) Potassium Level 3.2 mmol/L (3.5-5.1) Chloride Level 102 mmol/L (98-107) Carbon Dioxide Level 28 mmol/L (21-32) Anion Gap 13 (6-14) Blood Urea Nitrogen 13 mg/dL (7-20) Creatinine 0.7 mg/dL (0.6-1.0) Estimated GFR (Cockcroft-Gault) 100.1 BUN/Creatinine Ratio 19 (6-20) Glucose Level 94 mg/dL (70-99) Calcium Level 9.7 mg/dL (8.5-10.1) Magnesium Level 1.9 mg/dL (1.8-2.4) Total Bilirubin 0.4 mg/dL (0.2-1.0) Aspartate Amino Transf (AST/SGOT) 17 U/L (15-37) Alanine Aminotransferase (ALT/SGPT) 24 U/L (14-59) Alkaline Phosphatase 68 U/L (46-116) Troponin I Quantitative < 0.017 ng/mL (0.000-0.055) MV-Zkd-U-Type Natriuretic Peptide 319 pg/mL (0-124) Total Protein 7.4 g/dL (6.4-8.2) Albumin 3.8 g/dL (3.4-5.0) Albumin/Globulin Ratio 1.1 (1.0-1.7) Lipase 105 U/L (73-393) SARS-CoV-2 Antigen (Rapid) Negative (NEGATIVE) Laboratory Tests Test 11/15/20 09:24 11/15/20 10:09 White Blood Count 6.4 x10^3/uL (4.0-11.0) Red Blood Count 5.41 x10^6/uL (3.50-5.40) Hemoglobin 12.1 g/dL (12.0-15.5) Hematocrit 37.6 % (36.0-47.0) Mean Corpuscular Volume 70 fL (79-100) Mean Corpuscular Hemoglobin 22 pg (25-35) Mean Corpuscular Hemoglobin Concent 32 g/dL (31-37) Red Cell Distribution Width 16.7 % (11.5-14.5) Platelet Count 236 x10^3/uL (140-400) Neutrophils (%) (Auto) 39 % (31-73) Lymphocytes (%) (Auto) 47 % (24-48) Monocytes (%) (Auto) 11 % (0-9) Eosinophils (%) (Auto) 2 % (0-3) Basophils (%) (Auto) 1 % (0-3) Neutrophils # (Auto) 2.5 x10^3/uL (1.8-7.7) Lymphocytes # (Auto) 3.0 x10^3/uL (1.0-4.8) Monocytes # (Auto) 0.7 x10^3/uL (0.0-1.1) Eosinophils # (Auto) 0.1 x10^3/uL (0.0-0.7) Basophils # (Auto) 0.1 x10^3/uL (0.0-0.2) Sodium Level 143 mmol/L (136-145) Potassium Level 3.2 mmol/L (3.5-5.1) Chloride Level 102 mmol/L (98-107) Carbon Dioxide Level 28 mmol/L (21-32) Anion Gap 13 (6-14) Blood Urea Nitrogen 13 mg/dL (7-20) Creatinine 0.7 mg/dL (0.6-1.0) Estimated GFR (Cockcroft-Gault) 100.1 BUN/Creatinine Ratio 19 (6-20) Glucose Level 94 mg/dL (70-99) Calcium Level 9.7 mg/dL (8.5-10.1) Magnesium Level 1.9 mg/dL (1.8-2.4) Total Bilirubin 0.4 mg/dL (0.2-1.0) Aspartate Amino Transf (AST/SGOT) 17 U/L (15-37) Alanine Aminotransferase (ALT/SGPT) 24 U/L (14-59) Alkaline Phosphatase 68 U/L (46-116) Troponin I Quantitative < 0.017 ng/mL (0.000-0.055) UX-Qru-P-Type Natriuretic Peptide 319 pg/mL (0-124) Total Protein 7.4 g/dL (6.4-8.2) Albumin 3.8 g/dL (3.4-5.0) Albumin/Globulin Ratio 1.1 (1.0-1.7) Lipase 105 U/L (73-393) SARS-CoV-2 Antigen (Rapid) Negative (NEGATIVE) Images Images [facility] Protocol APPROVED REPORT Procedure(s) performed: Left Heart Catheterization, selective coronary angiography and left ventriculography via right transradial approach INDICATION The indication(s) include : unstable angina . PROCEDURE NARRATIVE After explaining the risks, benefits and alternative options, informed consent was obtained from patient. Patient was brought to the cardiac Stemmer Machine and right wrist was prepped and draped in the usual fashion after confirming a positive modified Luan's test. Arterial access was obtained in the right radial artery and a 6 Palestinian sheath was inserted. 6 Palestinian Benito catheter was used to perform selective angiography of the left and right coronary arteries. 6 Palestinian pigtail catheter was used to perform left ventriculography. Patient tolerated the procedure well. Hemostasis was achieved using TR band. There were no immediate complications. The following findings were noted. FINDINGS 1. Hemodynamics: Left ventricular end-diastolic pressure of 14 mmHg. No pullback gradient across the aortic valve. 2. Left ventriculography: Normal left ventricle systolic function with ejection fraction estimated at 65%. No significant mitral regurgitation seen. 3. Coronary angiography: a. The left main coronary artery arose from the left sinus of Valsalva, gave rise to the left anterior descending and left circumflex arteries and did not show any significant stenosis. b. The left anterior descending artery did not show any significant stenosis. c. The left circumflex artery did not show any significant stenosis. d. The right coronary artery was a large and dominant vessel arising from the right sinus of Valsalva that showed a widely patent stent in the midsegment. Conclusion 1. No significant coronary artery disease with widely patent previously placed stent in the right coronary artery 2. Normal left ventricle systolic function with ejection fraction estimated at 65% Recommendations Medical Therapy DICTATED and SIGNED BY: LILLIANA MARTINEZ MD DATE: 01/25/16 1444 CC: LILLIANA MARTINEZ MD; DARCI WOOD PA-C ~ IMAGE PROTOCOL: Rest Tc-99m/stress Tc-99m 1 day Rest: Stress: Viability: Radiopharm. Tc99m Sestamibi Tc99m Sestamibi Dose 9.5mCi 33mCi Duration 15min. 10min. Img Date 08/09/2018 08/09/2018 Inj-Img Time 45min. 45min. Rest Admin Site: IV - Right Antecubital Commercial [employer] Specialist: RT Andree (Jessie)(N) Stress Admin Site: IV - Right Antecubital Commercial Credit Specialist: ANDREA Mauricio STRESS DATA End Diast. Vol. 106.0ml Av. Heart Rate 66.0bpm End Syst. Vol. 28.0ml CO Index BSA 0.0L/min Myocardial Mass 140.0g Eject. Fraction 74.0% Stress Rates Pk. Fill Rate 2.60EDV/sec LVtime Pk. Fill 238.79msec Pk. Empty Rate 3.54ESV/sec LVtime Pk. Eject 163.85msec / Pk. Fill 1.09EDV/sec Stress Scores Regional WT 0.00 Summed WT 7.00 Regional WM 0.00 Summed WM 0.00 LV Perfusion Stress scans showed no significant defects. Rest scans showed no significant defects. Nuclear imaging shows no reversible ischemia or infarct. Wall Motion Left ventricular systolic function is normal with no wall motion abnormalities and an ejection fraction of greater than 70%. LV Perf. Quant 17 Seg. SSS 0.00 17 Seg. SRS 0.00 17 Seg. SDS 0.00 Stress Defect Extent (% LAD) 0.00 Rest Defect Extent (% LAD) 0.00 Rev. Defect Extent (% LAD) 0.00 Stress Defect Extent (% LCX) 0.00 Rest Defect Extent (% LCX) 0.00 Rev. Defect Extent (% LCX) 0.00 Stress Defect Extent (% RCA) 0.00 Rest Defect Extent (% RCA) 0.00 Rev. Defect Extent (% RCA) 0.00 Stress Defect Extent (% ELICEO) 0.00 Rest Defect Extent (% ELICEO) 0.00 Rev. Defect Extent (% ELICEO) 0.00 Conclusion 1. Mildly abnormal baseline EKG but no EKG evidence of stressed induced ischemia. 2. Nuclear imaging shows no reversible ischemia or infarct. 3. Normal left ventricular systolic function with an ejection fraction of greater than 70%. 4. Moderately low risk Lexiscan nuclear stress test. Signed by : Chriss Toro MD Electronically Approved : 08/09/2018 14:08:30 DICTATED and SIGNED BY: CHRISS TORO MD DATE: 08/09/18 1408 Signed PATIENT: MONET TURNER ACCOUNT: [id number] : 1950 LOCATION: ER AGE: 70 SEX: F EXAM STATUS: REG ER ORD. PHYSICIAN: LEANNA KESSLER DO REASON: chest pain PROCEDURE: PORTABLE CHEST 1V XR CHEST 1V History: Chest pain. Comparison: 06/14/2017 Technique: Portable AP radiograph of the chest. Findings: The lungs are adequately inflated. No focal airspace consolidation, pleural effusion or pneumothorax. Diffuse prominence of pulmonary interstitial markings and vasculature. Cardiac silhouette is borderline enlarged. Calcifications of the aortic arch. Degenerative changes of the shoulders. Soft tissues are unremarkable. Impression: 1. Borderline enlarged cardiac silhouette with prominence of vasculature and interstitium may represent interstitial edema/vascular congestion. 2. No focal airspace consolidation. Electronically signed by: Mitchell Noe MD (11/15/2020 10:44 AM) [id number] DICTATED and SIGNED BY: MITCHELL NOE MD DATE: 11/15/20 [id number] 0 VTE Prophylaxis Ordered VTE Prophylaxis Devices: Yes VTE Pharmacological Prophylaxi: Yes Assessment/Plan Assessment/Plan Impression: Unstable angina HX CAD STENTS CXR C/W Borderline enlarged cardiac silhouette with prominence of vasculature and interstitium may represent interstitial hannah a/vascular congestion. Remote tobacco abuse Coronary artery disease s/p PCI/stent to RCA, Hyperlipidemia: on statin therapy Hypertension, uncontrolled ADMITTED serial troponin i Consult Cardiology tele bed home meds DVT PROPHYLAXIS iv hydralazine 10 mg q 4 hrs prn bp support cont Metoprolol, asa, statin, risk reduction RX D/W ER DR Justifications for Admission Other Justification YUE ROLDAN MD Nov 15, 2020 11:20
[2020-11-15] MEDS ORDERED: HYDROcodone/APAP 5/325MG 1 TAB TABLET PO PRN ×2 (11:45→12:15)
[2020-11-15] MEDS ORDERED: ACETAMINOPHEN 325 MG TABLET. PO PRN (11:45)
[2020-11-15] MEDS ORDERED: SODIUM PHOSPHATES 19/7GM 133 ML ENEMA. PR PRN (11:45)
[2020-11-15] MEDS ORDERED: DOCUSATE SODIUM 100 MG CAPSULE. PO PRN (11:45)
[2020-11-15] MEDS ORDERED: MAG HYDROX/ALUMINUM HYD/SIMETH 30 ML ORAL.SUSP PO PRN (11:45)
[2020-11-15] MEDS ORDERED: ONDANSETRON PF 4 MG/2 ML VIAL. IV PRN (11:45)
[2020-11-15] MEDS ORDERED: ALBUTEROL SULFATE 2.5 MG/3 ML NEBU. NEB PRN (11:45)
[2020-11-15] MEDS ORDERED: LORazepam 0.5 MG TABLET PO PRN (11:45)
[2020-11-15] MEDS ORDERED: 0.9 % SODIUM CHLORIDE 10 ML DISP.SYRIN. IV PRN (11:45)
[2020-11-15] MEDS ORDERED: guaiFENesin ORAL 200 MG/10 ML LIQUID. PO PRN (11:45)
[2020-11-15 12:47] LABS: ANISOCYTOSIS PRESENT; HYPOCHROMIA MOD; MICROCYTOSIS MOD; PLT ESTIMATE ADEQUATE (ADEQUATE)
[2020-11-15] MEDS ORDERED: hydrALAZINE 25 MG TABLET PO SCH (14:00)
[2020-11-15] MEDS ORDERED: METOPROLOL SUCC 24HR ER 25 MG TAB.ER.24H. PO SCH (14:00)
[2020-11-15] MEDS ORDERED: METOPROLOL SUCC 24HR ER 50 MG TAB.ER.24H. PO SCH (14:00)
[2020-11-15] MEDS: ASPIRIN CHEWABLE 81 MG TABLET. PO SCH (14:26)
--- NOTE | 2020-11-15 14:28 | PDOC2 ---
MERLYN ROJAS WHEEL BUFFER 11/15/20 1428: CARDIAC CONSULT DATE OF CONSULT Date of Consult DATE: 11/15/20 TIME: 13:55 REASON FOR CONSULT Reason for Consult: Chest pain REFERRING PHYSICIAN Referring Physician: Dario SOURCE Source: Chart review, Patient HISTORY OF PRESENT ILLNESS HISTORY OF PRESENT ILLNESS This is a pleasant 70 yo female admitted for complains chest pressure. She has had RCA stent in the past. Her last stress test was in 2018. Denies any palpitations. Denies any cough, fever or chills and she has been vaccinated for covid-19 with last dose in August. She was doing aerobic exercise 2 days ago and w as also jumping without any cardaic symptoms. Yesterday she went to her PCP and was noted with slow HR in the 40s. she takes 100 mg of toprol in the morning and 50 mg at night. She was told to stop taking the morning toprol but no replacement was given. She also takes cozar, chlorthalidone, and norvasc. She started having chest pressure left sternal region nonradiating and also had some nausea vomited clear gastric contents. No diaphoresis, no dizziness. No rpior passing out. This improved. This morning she had the same episode with vomiting. She did not check her BP. Upon arrival in ED her BP was significnatly high despite taking all her BP meds without toprol. She is presently CP free but her BP is still labile. She cooks her own food and does not eat much process foods. PAST MEDICAL HISTORY Cardiovascular: CAD, HTN, Hyperlipidemia, Other (bradycardia) GI: GERD Heme/Onc: Anemia NOS Hepatobiliary: No pertinent hx Psych: Anxiety, Bipolar, Depression, Other (PTSD) Musculoskeletal: Osteoarthritis Rheumatologic: Other (lupus) ENT: Allergic Rhinitis Renal/: No pertinent hx Endocrine: Diabetes (2) Dermatology: No pertinent hx PAST SURGICAL HISTORY Past Surgical History: Cataract Removal, Hysterectomy, Other (thyroidectomy) FAMILY HISTORY Family History: Heart Disease SOCIAL HISTORY Smoke: Quit ALCOHOL: none Drugs: None Lives: Alone CURRENT MEDICATIONS CURRENT MEDICATIONS Current Medications Medications (Trade) Dose Ordered Sig/Audrey Route PRN Reason Start Time Stop Time Status Last Admin Dose Admin Nitroglycerin (Nitrostat) 0.4 mg PRN Q5MIN PRN SL CHEST PAIN 11/15/20 09:45 11/15/20 10:03 Potassium Chloride (Klor-Con) 40 meq 1X ONCE PO 11/15/20 10:30 11/15/20 10:31 DC 11/15/20 11:29 Potassium Phosphate (K-Phos Original) 500 mg 1X PO 11/15/20 11:15 11/15/20 11:00 Aspirin (Alejandra Aspirin) 325 mg 1X ONCE PO 11/15/20 11:15 11/15/20 11:16 DC 11/15/20 11:26 ALLERGIES ALLERGIES: Coded Allergies: No Known Drug Allergies (Unverified , 01/25/16) ROS Review of System 14 point ROS evaluated with pertinent positives noted per HPI PHYSICAL EXAM General: Alert, Oriented X3, Cooperative, No acute distress HEENT: Atraumatic, Mucous membr. moist/pink Lungs: Clear to auscultation, Normal air movement Heart: Regular rate (SR), Normal S1, Normal S2, No murmurs Abdomen: Soft, No tenderness Extremities: No cyanosis, No edema Skin: No breakdown, No significant lesion, Other (scattered vitiligos) Neuro: Normal speech, Sensation intact Psych/Mental Status: Mental status NL, Mood NL MUSCULOSKELETAL: Osteoarthritic changes both hands VITALS/I&O VITALS/I&O: Vital Signs Date Time Temp Pulse Resp B/P (MAP) Pulse Ox O2 Delivery O2 Flow Rate FiO2 11/15/20 11:25 44 20 199/88 (125) 99 Room Air 11/15/20 09:15 98.7 98.7 LABS Lab: Laboratory Tests Test 11/15/20 09:24 11/15/20 10:09 White Blood Count 6.4 x10^3/uL (4.0-11.0) Red Blood Count 5.41 x10^6/uL (3.50-5.40) H Hemoglobin 12.1 g/dL (12.0-15.5) Hematocrit 37.6 % (36.0-47.0) Mean Corpuscular Volume 70 fL (79-100) L Mean Corpuscular Hemoglobin 22 pg (25-35) L Mean Corpuscular Hemoglobin Concent 32 g/dL (31-37) Red Cell Distribution Width 16.7 % (11.5-14.5) H Platelet Count 236 x10^3/uL (140-400) Neutrophils (%) (Auto) 39 % (31-73) Lymphocytes (%) (Auto) 47 % (24-48) Monocytes (%) (Auto) 11 % (0-9) H Eosinophils (%) (Auto) 2 % (0-3) Basophils (%) (Auto) 1 % (0-3) Neutrophils # (Auto) 2.5 x10^3/uL (1.8-7.7) Lymphocytes # (Auto) 3.0 x10^3/uL (1.0-4.8) Monocytes # (Auto) 0.7 x10^3/uL (0.0-1.1) Eosinophils # (Auto) 0.1 x10^3/uL (0.0-0.7) Basophils # (Auto) 0.1 x10^3/uL (0.0-0.2) Platelet Estimate Adequate (ADEQUATE) Large Platelets Few Hypochromasia Mod Anisocytosis Present Microcytosis Mod Sodium Level 143 mmol/L (136-145) Potassium Level 3.2 mmol/L (3.5-5.1) L Chloride Level 102 mmol/L (98-107) Carbon Dioxide Level 28 mmol/L (21-32) Anion Gap 13 (6-14) Blood Urea Nitrogen 13 mg/dL (7-20) Creatinine 0.7 mg/dL (0.6-1.0) Estimated GFR (Cockcroft-Gault) 100.1 BUN/Creatinine Ratio 19 (6-20) Glucose Level 94 mg/dL (70-99) Calcium Level 9.7 mg/dL (8.5-10.1) Magnesium Level 1.9 mg/dL (1.8-2.4) Total Bilirubin 0.4 mg/dL (0.2-1.0) Aspartate Amino Transferase (AST) 17 U/L (15-37) Alanine Aminotransferase (ALT) 24 U/L (14-59) Alkaline Phosphatase 68 U/L (46-116) Troponin I Quantitative < 0.017 ng/mL (0.000-0.055) HC-Tjo-D-Type Natriuretic Peptide 319 pg/mL (0-124) H Total Protein 7.4 g/dL (6.4-8.2) Albumin 3.8 g/dL (3.4-5.0) Albumin/Globulin Ratio 1.1 (1.0-1.7) Lipase 105 U/L (73-393) SARS-CoV-2 Antigen (Rapid) Negative (NEGATIVE) Laboratory Tests 11/15/20 09:24 Laboratory Tests 11/15/20 09:24 ECHOCARDIOGRAM ECHOCARDIOGRAM <Conclusion> The left ventricle is normal size. The left ventricular systolic function is normal and the ejection fraction is within normal range. The Ejection Fraction is 50-55%. There is no significant aortic valvular stenosis. Doppler and Color Flow revealed no significant aortic regurgitation. Doppler and Color-flow revealed trace mitral regurgitation. Doppler and Color Flow revealed trace tricuspid regurgitation. The PA pressure was estimated at 22 mmHg. The ascending aorta is mildly dilated at 3.4 cm. DATE: 08/09/18 1440 STRESS TEST STRESS TEST Conclusion 1. Mildly abnormal baseline EKG but no EKG evidence of stressed induced ischemia. 2. Nuclear imaging shows no reversible ischemia or infarct. 3. Normal left ventricular systolic function with an ejection fraction of greater than 70%. 4. Moderately low risk Lexiscan nuclear stress test. DATE: 08/09/18 1408 HEART CATH HEART CATH FINDINGS 1. Hemodynamics: Left ventricular end-diastolic pressure of 14 mmHg. No pullback gradient across the aortic valve. 2. Left ventriculography: Normal left ventricle systolic function with ejection fraction estimated at 65%. No significant mitral regurgitation seen. 3. Coronary angiography: a. The left main coronary artery arose from the left sinus of Valsalva, gave rise to the left anterior descending and left circumflex arteries and did not show any significant stenosis. b. The left anterior descending artery did not show any significant stenosis. c. The left circumflex artery did not show any significant stenosis. d. The right coronary artery was a large and dominant vessel arising from the right sinus of Valsalva that showed a widely patent stent in the midsegment. Conclusion 1. No significant coronary artery disease with widely patent previously placed stent in the right coronary artery 2. Normal left ventricle systolic function with ejection fraction estimated at 65% Recommendations Medical Therapy DATE: 01/25/16 1444 ASSESSMENT/PLAN ASSESSMENT/PLAN 1. Chest pain: possibly from high BP. No acute changes to EKG. initial trop nml 2. HTN urgency: due to removal of toprol 100mg which she takes in AM but still takes 50 at betime 3. Asymptomatic SB: lowest 40s. Likely associated with metoprolol use. 4. CAD: past RCA stent 5. HLP 6. DM2: per PCP 7. Hypokalemia 8. Mild acute diastolic CHF 9. Hx of cutaneous lupus Recommendations 1. ASA. continue secondary prevention measures. Replace K 2. She was at her PCP yesterday and her BP was slightly elevated and her HR was in the 40s without symptoms hence her toprol was decreased to 50 mg daily. Continue norvasc 10 mg daily, cozar 100 mg, chlorthalidone 25 mg, and stop toprol and start on coreg low dose at 6.25 mg bid. Will also start on hydralazine 50 bid and will note BP and HR trend overnight. No NSAIDs. 3. Trend troponin. TTE pending 4. Ischemic workup as an outpt LILLIANA MARTINEZ MD 11/16/20 1008: CARDIAC CONSULT ASSESSMENT/PLAN ASSESSMENT/PLAN Patient seen and examined 11/15/20. Agree with SHIPFITTER HELPER's assessment and plan. CP with atypical features. CA ruled out 2D echo showed normal LV function Plan ischemic evaluation as outpatient in lieu of known history of CAD Agree with stopping toprol for bradycardia and starting hydralazine for better BP control Thank you for your consultation MERLYN ROJAS APRN Nov 15, 2020 14:28 LILLIANA MARTINEZ MD Nov 16, 2020 10:08
[2020-11-15] MEDS: MONTELUKAST SODIUM 10 MG TABLET. PO SCH (14:29)
[2020-11-15 16:00] VITALS: BP 164/74
[2020-11-15] MEDS ORDERED: CARVEDILOL 6.25 MG TABLET. PO SCH (17:00)
--- NOTE | 2020-11-15 17:00 | NUR ---
The patient, MONET TURNER, 70 y/o, F admitted by YUE ROLDAN MD, was given written information regarding hospital policies, unit procedures and contact persons. Patient verbalized understanding of policies/procedures. Valuables were checked and left with patient. Patient brought Nitroglycerin bottle from home, this RN placed in a bag with her supervisor car installations it and placed in the med room in pt's bin. Patient does not have chest pain at this time.
--- NOTE | 2020-11-15 17:01 | CARD ---
MR#: [id number] Date of Study: 11/15/2020 Ordering Physician: YUE ROLDAN, Referring Physician: YUE ROLDAN Tech: Munir Romero [facility] APPROVED REPORT EXAM: Two-dimensional and M-mode echocardiogram with Doppler and color Doppler. Other Information Quality : GoodHR: 41bpm Rhythm : Bradycardia INDICATION Cardiac Disease: CAD RISK FACTORS Hypertension Hyperlipidemia Smoking THC use 2D DIMENSIONS Left Atrium(2D)3.9 (1.6-4.0cm)IVSd1.1 (0.7-1.1cm) Aortic Root(2D)3.2 (2.0-3.7cm)LVDd5.8 (3.9-5.9cm) LVOT Diameter2.0 (1.8-2.4cm)PWd1.1 (0.7-1.1cm) LVDs3.6 (2.5-4.0cm)FS (%) 36.9 % SV108.4 mlLVEF(%)66.0 (>50%) Aortic Valve AoV Peak Merlin.136.2cm/sAoV VTI35.7cm AO Peak GR.7.4mmHgLVOT Peak Merlin.111.5cm/s AO Mean GR.4mmHgAVA (VMAX)2.61cm2 Mitral Valve MV E Pmrktcxg18.2cm/sMV E Peak Gr.4mmHg MV DECEL [id number] A Kuzexkdf13.9cm/s MV E Mean Gr.1mmHgE/A Ratio1.0 Pulmonary Valve PV Peak Wqpcnite02.6cm/s Tricuspid Valve TR P. Yjhhaeyh851qz/sTR Peak Gr.29mmHg Pulmonary Vein S1 Icqkfoke06.3cm/sD2 Hneljxvf76.5cm/s LEFT VENTRICLE The left ventricle is normal size. There is normal left ventricular wall thickness. The left ventricu lar systolic function is normal and the ejection fraction is within normal range. Left ventricular ej ection fraction of 55 to 60%. There is normal LV segmental wall motion. Tissue Doppler imaging reveal s abnormal left ventricular diastolic dysfunction. No left ventricle thrombus noted on this study. Th ere is no ventricular septal defect visualized. There is no left ventricular aneurysm. There is no ma ss noted in the left ventricle. RIGHT VENTRICLE The right ventricle is normal size. There is normal right ventricular wall thickness. The right ventr icular systolic function is normal. ATRIA The left atrium is moderately dilated. The right atrium is borderline dilated. The interatrial septum is intact with no evidence for an atrial septal defect or patent foramen ovale as noted on 2-D or Do ppler imaging. AORTIC VALVE The aortic valve is thickened but opens well. Doppler and Color Flow revealed no significant aortic r egurgitation. There is no significant aortic valvular stenosis. There is no aortic valvular vegetatio n. MITRAL VALVE The mitral valve is normal in structure and function. There is no evidence of mitral valve prolapse. There is no mitral valve stenosis. Doppler and Color-flow revealed trace mitral regurgitation. TRICUSPID VALVE The tricuspid valve is normal in structure and function. Doppler and Color Flow revealed trace to mil d tricuspid regurgitation. There is no tricuspid valve prolapse or vegetation. There is no tricuspid valve stenosis. PULMONIC VALVE The pulmonary valve is normal in structure and function. Doppler and Color Flow revealed no pulmonic valvular regurgitation. There is no pulmonic valvular stenosis. GREAT VESSELS The aortic root is normal in size. The ascending aorta is normal in size. The pulmonary artery is nor mal. The IVC is normal in size and collapses >50% with inspiration. PERICARDIAL EFFUSION There is no pleural effusion. There is no evidence of significant pericardial effusion. Critical Notification Critical Value: No <Conclusion> The left ventricle is normal size. The left ventricular systolic function is normal and the ejection fraction is within normal range. Left ventricular ejection fraction of 55 to 60%. Doppler and Color Flow revealed no significant aortic regurgitation. There is no significant aortic valvular stenosis. Doppler and Color-flow revealed trace mitral regurgitation. Doppler and Color Flow revealed trace to mild tricuspid regurgitation. Signed by : Tripp Toro MD Electronically Approved : 11/15/2020 17:01:03
[2020-11-15 19:44] VITALS: BP 101/50
[2020-11-15 19:55] VITALS: BP 145/68
[2020-11-15] MEDS ORDERED: ENOXAPARIN 40 MG/0.4 ML SYRINGE. SQ SCH (21:00)
[2020-11-15] MEDS ORDERED: LOSARTAN POTASSIUM 50 MG TABLET. PO SCH (21:00)
[2020-11-15] MEDS ORDERED: ATORVASTATIN CALCIUM 40 MG TABLET. PO SCH (21:00)
[2020-11-15] MEDS: FAMOTIDINE 20 MG TABLET. PO SCH (22:33)
[2020-11-15] MEDS ORDERED: METF500T16 PO (23:26)
[2020-11-15 23:39] VITALS: BP 172/97
[2020-11-16 02:58] VITALS: BP 147/111
[2020-11-16 06:53] VITALS: BP 159/77
[2020-11-16] MEDS ORDERED: PANTOPRAZOLE 40 MG TABLET.DR. PO SCH (07:30)
[2020-11-16] MEDS: MONTELUKAST SODIUM 10 MG TABLET. PO SCH (08:40)
[2020-11-16] MEDS: ASPIRIN CHEWABLE 81 MG TABLET. PO SCH (08:41)
[2020-11-16] MEDS: FAMOTIDINE 20 MG TABLET. PO SCH (08:41)
--- NOTE | 2020-11-16 08:55 | PDOC ---
PROGRESS NOTES Date of Service: DATE: 11/16/20 TIME: 08:55 Chief Complaint Chief Complaint VTE Prophylaxis Ordered VTE Prophylaxis Devices: Yes VTE Pharmacological Prophylaxi: Yes Assessment/Plan Assessment/Plan Impression: Unstable angina HX CAD STENTS CXR C/W Borderline enlarged cardiac silhouette with prominence of vasculature and interstitium may represent interstitial edema/vascular congestion. Remote tobacco abuse Coronary artery disease s/p PCI/stent to RCA, Hyperlipidemia: on statin therapy Hypertension, uncontrolled HYPOKALEMIA, REPLACED ADMITTED serial troponin i Consult Cardiology tele bed home meds DVT PROPHYLAXIS iv hydralazine 10 mg q 4 hrs prn bp support cont Metoprolol, asa, statin, risk reduction RX ASA. / Replace K Home BP meds as follows. Hydralazine 100 mg bid, Imdur 30 mg daily, coreg 3.125 bid, Chlorthalidone 25 daily, losartan 100 mg daily, amlodipine 10 mg daily Workup for secondary HTN as an outpt. Ischemic workup / outpt MPI on 12/24 at 7:45 AM. Follow up on 01/02 at 1015 d/c planning 33 min D/W RN Justifications for Admission Other Justification History of Present Illness History of Present Illness Identification/Chief Complaint Chief Complaint ANGINA, WORSE TODAY History of Present Illness History of Present Illness 70 year old female who presented to ER for evaluation of chest pain, described as heaviness and pressure in the substernal area since last night. , has had some discomfort x 2 weeks / known history of hypertension, coronary artery disease. / denies any cough or fever. vaccinated for COVID-19 in August 2020. /denies trouble breathing, denies abdominal pain // did have some nausea, pain better with SL NITRO IN ER K = 3.2 IN ER hx Coronary artery disease s/p PCI/stent to RCA, troponin i neg x 1 Hyperlipidemia: Continue statin therapy, htn bp UNCONTROLLED IN ER Past Medical History Past Medical History Past Medical History Past Medical History: CAD, Hypertension, PR, Other Additional Past Medical Histor: VITILIGO Past Surgical History: Hysterectomy, Other Additional Past Surgical Histo: cardiac cath with stents Smoking Status: Former Smoker Alcohol Use: Occasionally Drug Use: Marijuana mother age 87 CAD Cardiovascular: HTN, Hyperlipidemia Musculoskeletal: Osteoarthritis Endocrine: Diabetes Past Surgical History Past Surgical History: No pertinent history Family History Family History: Coronary Artery Disease, Hypertension Social History Smoke: Quit ALCOHOL: none Drugs: Marijuana Current Problem List Problem List Problems Medical Problems: (1) Chest pain Status: Acute Current Medications Current Medications Current Medications Nitroglycerin (Nitrostat) 0.4 mg PRN Q5MIN PRN SL CHEST PAIN Last administered on 11/15/20at 10:03; Start 11/15/20 at 09:45 Potassium Chloride (Klor-Con) 40 meq 1X ONCE PO ; Start 11/15/20 at 10:30; Stop 11/15/20 at 10:31; Status DC Potassium Phosphate (K-Phos Original) 500 mg 1X PO Last administered on 11/15/20at 11:00; Start 11/15/20 at 11:15 Aspirin (Alejandra Aspirin) 325 mg 1X ONCE PO ; Start 11/15/20 at 11:15; Stop 11/15/20 at 11:16; Status DC Active Scripts Active [place] 5-325 Tablet (Acetaminophen/Hydrocodone Bitart) 1 Each Tablet 1-2 Each PO PRN Q6HRS PRN as needed for pain Potassium Chloride (Potassium Chloride) 10 Meq Tab.sr.24h 10 Meq PO DAILY Metoprolol Succinate ( Xl ) (Metoprolol Succinate) 25 Mg Tab.er.24h 3 Tab PO DAILY 20 Days Reported Toprol Xl (Metoprolol Succinate) 50 Mg Tab.er.24h 50 Mg PO DAILY Prilosec Otc (Omeprazole Magnesium) 20 Mg Tablet.dr 20 Mg PO DAILY Hydralazine Hcl 25 Mg Tablet 1 Tab PO TID Losartan Potassium 100 Mg Tablet 100 Mg PO HS Fish Oil 1,000 Mg Softgel ([place]-3 Fatty Acids/Fish Oil) 1 Each Capsule 1 Each PO Aspirin 81 Mg Tab.chew 1 Tab PO DAILY Cyclobenzaprine Hcl 10 Mg Tablet 1 Tab PO QHS Atorvastatin Calcium 40 Mg Tablet 1 Tab PO DAILY Singulair Tablet (Montelukast Sodium) 10 Mg Tablet 1 Tab PO DAILY Chlorthalidone (Chlorthalidone) 25 Mg Tablet 1 Tab PO DAILY Ranitidine Hcl 150 Mg Tablet 1 Tab PO BID Allergies Allergies: Coded Allergies: No Known Drug Allergies (Unverified , 01/25/16) ROS Review of System 14 point ROS was completed with the following noted as positive:/ OTHERWISE NEG Other systems reviewed and negative. \CONSTITUTIONAL: No fever or chills EYES: No recent changes SKIN: No rash or itching CARDIOVASCULAR: chest pain, NO syncope, palpitations, or edema NOT RELATED TO MEALS RESPIRATORY: No SOB or cough GASTROINTESTINAL: No nausea, vomiting or abdominal pain NEUROLOGICAL: No headaches or weakness ENDOCRINE: No cold or heat intolerance GENITOURINARY: No urgency or frequency of urination MUSCULOSKELETAL: No back pain or joint pain LYMPHATICS: No enlarged lymph nodes PSYCHIATRIC: No anxiety or depression Cardiovascular: yes Chest Pain; No Palpitations, No Orthopnea, No Paroxysmal Noc. Dyspnea, No Edema, No Lt Headedness, No Other Gastrointestinal: Yes Nausea; No Vomiting, No Abdominal Pain, No Diarrhea, No Constipation, No Melena, No Hematochezia, No Other Musculoskeletal: No Gait Disturbance, No Joint Pain, No Joint Stiffness, No Joint Swelling, No Muscle Pain, No Muscular Weakness, No Pain In:, No Swelling In:, No Other Neurological: No Behavorial Changes, No Bowel/Bladder ControlChng, No Confusion, No Dizziness, No Gait Disturbance, No Headaches, No Impaired Coord/balance, No Memory Loss, No Numbness/Tingling, No Seizures, No Speech Problems, No Tremors, No Visual Changes, No Weakness, No Other Vitals Vitals Vital Signs Date Time Temp Pulse Resp B/P (MAP) Pulse Ox O2 Delivery O2 Flow Rate FiO2 11/16/20 08:41 65 11/16/20 06:53 98.2 16 159/77 (104) 100 Room Air 98.2 Physical Exam General: Alert, Oriented X3, Cooperative, No acute distress Heart: Regular rate (SR), Normal S1, Normal S2, No murmurs Lungs: Clear Abdomen: Normal bowel sounds, Soft, No tenderness Extremities: No cyanosis, No edema Skin: No breakdown, No significant lesion, Other (scattered vitiligos) Labs LABS Laboratory Tests Test 11/15/20 09:24 11/15/20 10:09 11/15/20 13:50 11/15/20 17:04 White Blood Count 6.4 x10^3/uL (4.0-11.0) Red Blood Count 5.41 x10^6/uL (3.50-5.40) Hemoglobin 12.1 g/dL (12.0-15.5) Hematocrit 37.6 % (36.0-47.0) Mean Corpuscular Volume 70 fL (79-100) Mean Corpuscular Hemoglobin 22 pg (25-35) Mean Corpuscular Hemoglobin Concent 32 g/dL (31-37) Red Cell Distribution Width 16.7 % (11.5-14.5) Platelet Count 236 x10^3/uL (140-400) Neutrophils (%) (Auto) 39 % (31-73) Lymphocytes (%) (Auto) 47 % (24-48) Monocytes (%) (Auto) 11 % (0-9) Eosinophils (%) (Auto) 2 % (0-3) Basophils (%) (Auto) 1 % (0-3) Neutrophils # (Auto) 2.5 x10^3/uL (1.8-7.7) Lymphocytes # (Auto) 3.0 x10^3/uL (1.0-4.8) Monocytes # (Auto) 0.7 x10^3/uL (0.0-1.1) Eosinophils # (Auto) 0.1 x10^3/uL (0.0-0.7) Basophils # (Auto) 0.1 x10^3/uL (0.0-0.2) Platelet Estimate Adequate (ADEQUATE) Large Platelets Few Hypochromasia Mod Anisocytosis Present Microcytosis Mod Sodium Level 143 mmol/L (136-145) Potassium Level 3.2 mmol/L (3.5-5.1) Chloride Level 102 mmol/L (98-107) Carbon Dioxide Level 28 mmol/L (21-32) Anion Gap 13 (6-14) Blood Urea Nitrogen 13 mg/dL (7-20) Creatinine 0.7 mg/dL (0.6-1.0) Estimated GFR (Cockcroft-Gault) 100.1 BUN/Creatinine Ratio 19 (6-20) Glucose Level 94 mg/dL (70-99) Calcium Level 9.7 mg/dL (8.5-10.1) Magnesium Level 1.9 mg/dL (1.8-2.4) Total Bilirubin 0.4 mg/dL (0.2-1.0) Aspartate Amino Transf (AST/SGOT) 17 U/L (15-37) Alanine Aminotransferase (ALT/SGPT) 24 U/L (14-59) Alkaline Phosphatase 68 U/L (46-116) Troponin I Quantitative < 0.017 ng/mL (0.000-0.055) < 0.017 ng/mL (0.000-0.055) < 0.017 ng/mL (0.000-0.055) EJ-Qbx-F-Type Natriuretic Peptide 319 pg/mL (0-124) Total Protein 7.4 g/dL (6.4-8.2) Albumin 3.8 g/dL (3.4-5.0) Albumin/Globulin Ratio 1.1 (1.0-1.7) Lipase 105 U/L (73-393) SARS-CoV-2 RNA (DAT) Negative (Negative) SARS-CoV-2 Antigen (Rapid) Negative (NEGATIVE) Thyroid Stimulating Hormone (TSH) 0.801 uIU/mL (0.358-3.74) Test 11/15/20 23:33 11/16/20 07:28 Glucose (Fingerstick) 136 mg/dL (70-99) 115 mg/dL (70-99) Assessment and Plan Assessmemt and Plan Problems Medical Problems: (1) Chest pain Status: Acute Comment Review of Relevant I have reviewed the following items henry (where applicable) has been applied. Labs Laboratory Tests Test 11/15/20 09:24 11/15/20 10:09 11/15/20 13:50 11/15/20 17:04 White Blood Count 6.4 x10^3/uL (4.0-11.0) Red Blood Count 5.41 x10^6/uL (3.50-5.40) Hemoglobin 12.1 g/dL (12.0-15.5) Hematocrit 37.6 % (36.0-47.0) Mean Corpuscular Volume 70 fL (79-100) Mean Corpuscular Hemoglobin 22 pg (25-35) Mean Corpuscular Hemoglobin Concent 32 g/dL (31-37) Red Cell Distribution Width 16.7 % (11.5-14.5) Platelet Count 236 x10^3/uL (140-400) Neutrophils (%) (Auto) 39 % (31-73) Lymphocytes (%) (Auto) 47 % (24-48) Monocytes (%) (Auto) 11 % (0-9) Eosinophils (%) (Auto) 2 % (0-3) Basophils (%) (Auto) 1 % (0-3) Neutrophils # (Auto) 2.5 x10^3/uL (1.8-7.7) Lymphocytes # (Auto) 3.0 x10^3/uL (1.0-4.8) Monocytes # (Auto) 0.7 x10^3/uL (0.0-1.1) Eosinophils # (Auto) 0.1 x10^3/uL (0.0-0.7) Basophils # (Auto) 0.1 x10^3/uL (0.0-0.2) Platelet Estimate Adequate (ADEQUATE) Large Platelets Few Hypochromasia Mod Anisocytosis Present Microcytosis Mod Sodium Level 143 mmol/L (136-145) Potassium Level 3.2 mmol/L (3.5-5.1) Chloride Level 102 mmol/L (98-107) Carbon Dioxide Level 28 mmol/L (21-32) Anion Gap 13 (6-14) Blood Urea Nitrogen 13 mg/dL (7-20) Creatinine 0.7 mg/dL (0.6-1.0) Estimated GFR (Cockcroft-Gault) 100.1 BUN/Creatinine Ratio 19 (6-20) Glucose Level 94 mg/dL (70-99) Calcium Level 9.7 mg/dL (8.5-10.1) Magnesium Level 1.9 mg/dL (1.8-2.4) Total Bilirubin 0.4 mg/dL (0.2-1.0) Aspartate Amino Transf (AST/SGOT) 17 U/L (15-37) Alanine Aminotransferase (ALT/SGPT) 24 U/L (14-59) Alkaline Phosphatase 68 U/L (46-116) Troponin I Quantitative < 0.017 ng/mL (0.000-0.055) < 0.017 ng/mL (0.000-0.055) < 0.017 ng/mL (0.000-0.055) IC-Snb-C-Type Natriuretic Peptide 319 pg/mL (0-124) Total Protein 7.4 g/dL (6.4-8.2) Albumin 3.8 g/dL (3.4-5.0) Albumin/Globulin Ratio 1.1 (1.0-1.7) Lipase 105 U/L (73-393) SARS-CoV-2 RNA (DAT) Negative (Negative) SARS-CoV-2 Antigen (Rapid) Negative (NEGATIVE) Thyroid Stimulating Hormone (TSH) 0.801 uIU/mL (0.358-3.74) Test 11/15/20 23:33 11/16/20 07:28 Glucose (Fingerstick) 136 mg/dL (70-99) 115 mg/dL (70-99) Laboratory Tests Test 11/15/20 09:24 11/15/20 10:09 11/15/20 13:50 11/15/20 17:04 White Blood Count 6.4 x10^3/uL (4.0-11.0) Red Blood Count 5.41 x10^6/uL (3.50-5.40) Hemoglobin 12.1 g/dL (12.0-15.5) Hematocrit 37.6 % (36.0-47.0) Mean Corpuscular Volume 70 fL (79-100) Mean Corpuscular Hemoglobin 22 pg (25-35) Mean Corpuscular Hemoglobin Concent 32 g/dL (31-37) Red Cell Distribution Width 16.7 % (11.5-14.5) Platelet Count 236 x10^3/uL (140-400) Neutrophils (%) (Auto) 39 % (31-73) Lymphocytes (%) (Auto) 47 % (24-48) Monocytes (%) (Auto) 11 % (0-9) Eosinophils (%) (Auto) 2 % (0-3) Basophils (%) (Auto) 1 % (0-3) Neutrophils # (Auto) 2.5 x10^3/uL (1.8-7.7) Lymphocytes # (Auto) 3.0 x10^3/uL (1.0-4.8) Monocytes # (Auto) 0.7 x10^3/uL (0.0-1.1) Eosinophils # (Auto) 0.1 x10^3/uL (0.0-0.7) Basophils # (Auto) 0.1 x10^3/uL (0.0-0.2) Platelet Estimate Adequate (ADEQUATE) Large Platelets Few Hypochromasia Mod Anisocytosis Present Microcytosis Mod Sodium Level 143 mmol/L (136-145) Potassium Level 3.2 mmol/L (3.5-5.1) Chloride Level 102 mmol/L (98-107) Carbon Dioxide Level 28 mmol/L (21-32) Anion Gap 13 (6-14) Blood Urea Nitrogen 13 mg/dL (7-20) Creatinine 0.7 mg/dL (0.6-1.0) Estimated GFR (Cockcroft-Gault) 100.1 BUN/Creatinine Ratio 19 (6-20) Glucose Level 94 mg/dL (70-99) Calcium Level 9.7 mg/dL (8.5-10.1) Magnesium Level 1.9 mg/dL (1.8-2.4) Total Bilirubin 0.4 mg/dL (0.2-1.0) Aspartate Amino Transf (AST/SGOT) 17 U/L (15-37) Alanine Aminotransferase (ALT/SGPT) 24 U/L (14-59) Alkaline Phosphatase 68 U/L (46-116) Troponin I Quantitative < 0.017 ng/mL (0.000-0.055) < 0.017 ng/mL (0.000-0.055) < 0.017 ng/mL (0.000-0.055) MV-Nax-D-Type Natriuretic Peptide 319 pg/mL (0-124) Total Protein 7.4 g/dL (6.4-8.2) Albumin 3.8 g/dL (3.4-5.0) Albumin/Globulin Ratio 1.1 (1.0-1.7) Lipase 105 U/L (73-393) SARS-CoV-2 RNA (DAT) Negative (Negative) SARS-CoV-2 Antigen (Rapid) Negative (NEGATIVE) Thyroid Stimulating Hormone (TSH) 0.801 uIU/mL (0.358-3.74) Test 11/15/20 23:33 11/16/20 07:28 Glucose (Fingerstick) 136 mg/dL (70-99) 115 mg/dL (70-99) Medications Current Medications Nitroglycerin (Nitrostat) 0.4 mg PRN Q5MIN PRN SL CHEST PAIN Last administered on 11/15/20at 10:03; Start 11/15/20 at 09:45 Potassium Chloride (Klor-Con) 40 meq 1X ONCE PO Last administered on 11/15/20at 11:29; Start 11/15/20 at 10:30; Stop 11/15/20 at 10:31; Status DC Potassium Phosphate (K-Phos Original) 500 mg 1X PO Last administered on 11/15/20at 11:00; Start 11/15/20 at 11:15 Aspirin (Alejandra Aspirin) 325 mg 1X ONCE PO Last administered on 11/15/20at 11:26; Start 11/15/20 at 11:15; Stop 11/15/20 at 11:16; Status DC Potassium Chloride (Klor-Con) 40 meq 1X ONCE PO ; Start 11/15/20 at 11:30; Stop 11/15/20 at 11:32; Status DC Potassium Chloride (Klor-Con) 20 meq 1X ONCE PO ; Start 11/16/20 at 11:30; Stop 11/16/20 at 11:31 Aspirin (Aspirin Chewable) 81 mg DAILY PO Last administered on 11/16/20at 08:41; Start 11/15/20 at 14:00 Atorvastatin Calcium (Lipitor) 40 mg QHS PO Last administered on 11/15/20at 22:33; Start 11/15/20 at 21:00 Acetaminophen/ Hydrocodone Bitart (Lortab 5/325) 1 tab PRN Q6HRS PRN PO MODERATE BACK PAIN; Start 11/15/20 at 11:45 Metoprolol Succinate (Toprol Xl) 75 mg DAILY PO ; Start 11/15/20 at 14:00; Stop 11/15/20 at 12:15; Status DC Montelukast Sodium (Singulair) 10 mg DAILY PO Last administered on 11/16/20at 08:40; Start 11/15/20 at 14:00 Pantoprazole Sodium (Protonix) 40 mg DAILYAC PO Last administered on 11/16/20at 06:30; Start 11/16/20 at 07:30 Chlorthalidone (Thalitone) 25 mg DAILY PO Last administered on 11/16/20at 08:41; Start 11/16/20 at 09:00 Hydralazine HCl (Apresoline) 25 mg TID PO ; Start 11/15/20 at 14:00; Stop 11/15/20 at 15:58; Status DC Losartan Potassium (Cozaar) 100 mg QHS PO ; Start 11/15/20 at 21:00; Stop 11/15/20 at 15:58; Status DC Metoprolol Succinate (Toprol Xl) 50 mg DAILY PO ; Start 11/15/20 at 14:00; Stop 11/15/20 at 15:58; Status DC Famotidine (Pepcid) 20 mg BID PO Last administered on 11/16/20at 08:41; Start 11/15/20 at 21:00 Sodium Chloride (Normal Saline Flush) 3 ml QSHIFT PRN IV AFTER MEDS AND BLOOD DRAWS; Start 11/15/20 at 11:45 Ondansetron HCl (Zofran) 4 mg PRN Q4HRS PRN IV NAUSEA/VOMITING; Start 11/15/20 at 11:45 Acetaminophen (Tylenol) 650 mg PRN Q4HRS PRN PO TEMP OVER 100.4F OR MILD PAIN; Start 11/15/20 at 11:45 Al Hydroxide/Mg Hydroxide (Mylanta Plus Xs) 30 ml PRN DAILY PRN PO HEARTBURN / GAS; Start 11/15/20 at 11:45 Sodium Monofluorophosphate (Fleet Adult) 133 ml PRN DAILY PRN [place] CONSTIPATION; Start 11/15/20 at 11:45 Docusate Sodium (Colace) 100 mg PRN BID PRN PO HARD STOOLS; Start 11/15/20 at 11:45 Albuterol Sulfate (Ventolin Neb Soln) 2.5 mg PRN Q4HRS PRN NEB SHORTNESS OF BREATH; Start 11/15/20 at 11:45 Guaifenesin (Robitussin) 200 mg PRN Q4HRS PRN PO COUGH; Start 11/15/20 at 11:45 Lorazepam (Ativan) 0.5 mg PRN Q4HRS PRN PO ANXIETY / AGITATION; Start 11/15/20 at 11:45 Enoxaparin Sodium (Lovenox 40mg Syringe) 40 mg Q24H SQ Last administered on 11/15/20at 22:34; Start 11/15/20 at 21:00 Acetaminophen/ Hydrocodone Bitart (Lortab 5/325) 2 tab PRN Q6HRS PRN PO SEVERE BACK PAIN; Start 11/15/20 at 12:15 Amlodipine Besylate (Norvasc) 10 mg 1X ONCE PO Last administered on 11/15/20at 14:34; Start 11/15/20 at 14:30; Stop 11/15/20 at 14:31; Status DC Hydralazine HCl (Apresoline) 50 mg TID PO Last administered on 11/16/20at 08:41; Start 11/15/20 at 21:00 Losartan Potassium (Cozaar) 100 mg DAILY PO Last administered on 11/16/20at 08:40; Start 11/16/20 at 09:00 Carvedilol (Coreg) 6.25 mg BIDWMEALS PO ; Start 11/15/20 at 17:00 Active Scripts Active [place] 5-325 Tablet (Acetaminophen/Hydrocodone Bitart) 1 Each Tablet 1-2 Each PO PRN Q6HRS PRN as needed for pain Potassium Chloride (Potassium Chloride) 10 Meq Tab.sr.24h 10 Meq PO DAILY Reported Metformin Hcl 500 Mg Tablet 500 Mg PO BIDWMEALS Toprol Xl (Metoprolol Succinate) 50 Mg Tab.er.24h 50 Mg PO DAILY Prilosec Otc (Omeprazole Magnesium) 20 Mg Tablet.dr 20 Mg PO DAILY Hydralazine Hcl 25 Mg Tablet 1 Tab PO TID Losartan Potassium 100 Mg Tablet 100 Mg PO HS Fish Oil 1,000 Mg Softgel ([place]-3 Fatty Acids/Fish Oil) 1 Each Capsule 1 Each PO Aspirin 81 Mg Tab.chew 1 Tab PO DAILY Cyclobenzaprine Hcl 10 Mg Tablet 1 Tab PO QHS Atorvastatin Calcium 40 Mg Tablet 1 Tab PO DAILY Singulair Tablet (Montelukast Sodium) 10 Mg Tablet 1 Tab PO DAILY Chlorthalidone (Chlorthalidone) 25 Mg Tablet 1 Tab PO DAILY Vitals/I & O Vital Sign - Last 24 Hours 11/15/20 11/15/20 11/15/20 11/15/20 09:15 09:21 09:56 10:03 Temp 98.7 98.7 Pulse 58 50 51 50 Resp 16 18 22 B/P (MAP) 222/86 (121) 222/86 (131) 181/80 (113) 181/80 Pulse Ox 99 99 99 O2 Delivery Room Air Room Air Room Air 11/15/20 11/15/20 11/15/20 11/15/20 10:29 10:51 11:25 14:28 Pulse 45 45 44 45 Resp 18 18 20 20 B/P (MAP) 163/78 (106) 203/83 (123) 199/88 (125) 168/76 (106) Pulse Ox 99 99 98 O2 Delivery Room Air Room Air Room Air Room Air 11/15/20 11/15/20 11/15/20 11/15/20 14:34 15:08 16:00 16:00 Temp 97.5 97.5 Pulse 49 45 45 Resp 20 16 B/P (MAP) 168/76 179/78 (111) 164/74 (104) Pulse Ox 96 97 O2 Delivery Room Air Room Air Room Air 11/15/20 11/15/20 11/15/20 11/15/20 16:21 19:44 20:05 23:39 Temp 98.7 98.3 98.7 98.3 Pulse 40 48 48 Resp 18 16 B/P (MAP) 164/74 101/50 (67) 172/97 (122) Pulse Ox 97 97 O2 Delivery Room Air Room Air Room Air 11/16/20 11/16/20 11/16/20 11/16/20 00:19 02:58 06:53 08:40 Temp 98.5 98.2 98.5 98.2 Pulse 48 60 65 65 Resp 18 16 B/P (MAP) 172/97 147/111 (123) 159/77 (104) Pulse Ox 98 100 O2 Delivery Room Air Room Air 11/16/20 08:41 Pulse 65 Intake and Output 11/15/20 11/15/20 11/16/20 15:00 23:00 07:00 Intake Total 300 ml Balance 300 ml Justicifation of Admission Dx: Justifications for Admission: Justification of Admission Dx: No YUE ROLDAN MD Nov 16, 2020 08:55
[2020-11-16] MEDS ORDERED: CHLORTHALIDONE 25 MG TABLET. PO SCH (09:00)
[2020-11-16] MEDS ORDERED: LOSARTAN POTASSIUM 50 MG TABLET. PO SCH (09:00)
[2020-11-16 09:39] LABS: CALCIUM 10.7 mg/dL (8.5-10.1); GFR 66.3
[2020-11-16 09:44] LABS: CHOLESTEROL/HDL RATIO 3.7; POTASSIUM 2.8 mmol/L (3.5-5.1)
--- NOTE | 2020-11-16 09:57 | PDOC ---
CARDIO Progress Notes Date and Time Date of Service 11/16/2020 Time of Evaluation 0935 Subjective Subjective: No Chest Pain, No shortness of breath, No Palpitations Vitals Vitals Vital Signs Date Time Temp Pulse Resp B/P (MAP) Pulse Ox O2 Delivery O2 Flow Rate FiO2 11/16/20 08:41 65 11/16/20 06:53 98.2 16 159/77 (104) 100 Room Air 98.2 Weight Weight [ ] Input and Output Intake and Output Intake and Output 11/16/20 07:00 Intake Total 300 ml Balance 300 ml Intake Oral 300 ml # Voids 2 Laboratory Labs Laboratory Tests Test 11/15/20 10:09 11/15/20 13:50 11/15/20 17:04 11/15/20 23:33 SARS-CoV-2 RNA (DAT) Negative (Negative) SARS-CoV-2 Antigen (Rapid) Negative (NEGATIVE) Troponin I Quantitative < 0.017 ng/mL (0.000-0.055) < 0.017 ng/mL (0.000-0.055) Thyroid Stimulating Hormone (TSH) 0.801 uIU/mL (0.358-3.74) Glucose (Fingerstick) 136 mg/dL (70-99) Test 11/16/20 07:28 Glucose (Fingerstick) 115 mg/dL (70-99) Physical Exam HEENT: Neck Supple W Full Motion Chest: Symmetric LUNGS: Clear to Auscultation Heart: S1S2, RRR (SR) Abdomen: Soft N/T Extremities: No Edema, No Calf Tenderness Neurology: alert, oriented, follow commands Assessment Assessment 1. Chest pain: possibly from high BP. No acute changes to EKG. initial trop nml. EF and WM nml 2. HTN urgency: due to removal of toprol 100mg which she takes in AM but still takes 50 at bedtime. labile but better 3. Asymptomatic SB: lowest mid 30s with first degree AV block. Likely associated with high dose metoprolol use. 4. CAD: past RCA stent 5. HLP 6. DM2: per PCP 7. Hypokalemia 8. Mild acute diastolic CHF; compensated 9. Hx of cutaneous lupus Recommendations 1. ASA. continue secondary prevention measures. Replace K 2. Home BP meds as follows. Hydralazine 100 mg bid, Imdur 30 mg daily, coreg 3.125 bid, Chlorthalidone 25 daily, losartan 100 mg daily, amlodipine 10 mg daily 3. Workup for secondary causes HTN as an outpt. 4. Ischemic workup as an outpt MPI on 12/24 at 7:45 AM. Follow up on 01/02 at 1015 Justicifation of Admission Dx: Justifications for Admission: Justification of Admission Dx: Yes MERLYN ROJAS APRN Nov 16, 2020 09:57
[2020-11-16] MEDS ORDERED: ISOSORBIDE MONONITRATE ER 30 MG TAB.ER.24H PO SCH (10:30)
[2020-11-16 11:00] VITALS: BP 157/92
--- NOTE | 2020-11-16 11:23 | PDOC3 ---
Discharge Summary Date of Admission: Nov 15, 2020 Date of Discharge: Nov 16, 2020 Follow-Up: Other (as directed) Admitting Diagnosis comment: consults cardiology complications none d/c condition good f/u Home BP meds as follows. Hydralazine 100 mg bid, Imdur 30 mg daily, coreg 3.125 bid, Chlorthalidone 25 daily, losartan 100 mg daily, amlodipine 10 mg daily Workup for secondary HTN as an outpt. Ischemic workup / outpt MPI on 12/24 at 7:45 AM. Follow up on 01/02 at 1015 discharge dx Assessment/Plan Impression: Unstable angina HX CAD STENTS CXR C/W Borderline enlarged cardiac silhouette with prominence of vasculature and interstitium may represent interstitial edema/vascular congestion. Remote tobacco abuse Coronary artery disease s/p PCI/stent to RCA, Hyperlipidemia: on statin therapy Hypertension, uncontrolled HYPOKALEMIA, REPLACED ADMITTED serial troponin i Consult Cardiology tele bed home meds DVT PROPHYLAXIS iv hydralazine 10 mg q 4 hrs prn bp support cont Metoprolol, asa, statin, risk reduction RX ASA. / Replace K Home BP meds as follows. Hydralazine 100 mg bid, Imdur 30 mg daily, coreg 3.125 bid, Chlorthalidone 25 daily, losartan 100 mg daily, amlodipine 10 mg daily Workup for secondary HTN as an outpt. Ischemic workup / outpt MPI on 12/24 at 7:45 AM. Follow up on 01/02 at 1015 d/c planning 33 min D/W RN Justifications for Admission Other Justification History of Present Illness History of Present Illness Identification/Chief Complaint Chief Complaint ANGINA, WORSE TODAY History of Present Illness History of Present Illness 70 year old female who presented to ER for evaluation of chest pain, described as heaviness and pressure in the substernal area since last night. , has had some discomfort x 2 weeks / known history of hypertension, coronary artery disease. / denies any cough or fever. vaccinated for COVID-19 in August 2020. /denies trouble breathing, denies abdominal pain // did have some nausea, pain better with SL NITRO IN ER K = 3.2 IN ER hx Coronary artery disease s/p PCI/stent to RCA, troponin i neg x 1 Hyperlipidemia: Continue statin therapy, htn bp UNCONTROLLED IN ER Past Medical History Past Medical History Past Medical History Past Medical History: CAD, Hypertension, [place], Other Additional Past Medical Histor: VITILIGO Past Surgical History: Hysterectomy, Other Additional Past Surgical Histo: cardiac cath with stents Smoking Status: Former Smoker Alcohol Use: Occasionally Drug Use: Marijuana mother age 87 CAD Cardiovascular: HTN, Hyperlipidemia Musculoskeletal: Osteoarthritis Endocrine: Diabetes Past Surgical History Past Surgical History: No pertinent history Family History Family History: Coronary Artery Disease, Hypertension Social History Smoke: Quit ALCOHOL: none Drugs: Marijuana Current Problem List Problem List Problems Medical Problems: (1) Chest pain Status: Acute Current Medications Current Medications Current Medications Nitroglycerin (Nitrostat) 0.4 mg PRN Q5MIN PRN SL CHEST PAIN Last administered on 11/15/20at 10:03; Start 11/15/20 at 09:45 Potassium Chloride (Klor-Con) 40 meq 1X ONCE PO ; Start 11/15/20 at 10:30; Stop 11/15/20 at 10:31; Status DC Potassium Phosphate (K-Phos Original) 500 mg 1X PO Last administered on 11/15/20at 11:00; Start 11/15/20 at 11:15 Aspirin (Alejandra Aspirin) 325 mg 1X ONCE PO ; Start 11/15/20 at 11:15; Stop 11/15/20 at 11:16; Status DC Active Scripts Active Berg[place] 5-325 Tablet (Acetaminophen/Hydrocodone Bitart) 1 Each Tablet 1-2 Each PO PRN Q6HRS PRN as needed for pain Potassium Chloride (Potassium Chloride) 10 Meq Tab.sr.24h 10 Meq PO DAILY Metoprolol Succinate ( Xl ) (Metoprolol Succinate) 25 Mg Tab.er.24h 3 Tab PO DAILY 20 Days Reported Toprol Xl (Metoprolol Succinate) 50 Mg Tab.er.24h 50 Mg PO DAILY Prilosec Otc (Omeprazole Magnesium) 20 Mg Tablet.dr 20 Mg PO DAILY Hydralazine Hcl 25 Mg Tablet 1 Tab PO TID Losartan Potassium 100 Mg Tablet 100 Mg PO HS Fish Oil 1,000 Mg Softgel (Orrtanna-3 Fatty Acids/Fish Oil) 1 Each Capsule 1 Each PO Aspirin 81 Mg Tab.chew 1 Tab PO DAILY Cyclobenzaprine Hcl 10 Mg Tablet 1 Tab PO QHS Atorvastatin Calcium 40 Mg Tablet 1 Tab PO DAILY Singulair Tablet (Montelukast Sodium) 10 Mg Tablet 1 Tab PO DAILY Chlorthalidone (Chlorthalidone) 25 Mg Tablet 1 Tab PO DAILY Ranitidine Hcl 150 Mg Tablet 1 Tab PO BID Allergies Allergies: Coded Allergies: No Known Drug Allergies (Unverified , 01/25/16) ROS Review of System 14 point ROS was completed with the following noted as positive:/ OTHERWISE NEG Other systems reviewed and negative. \CONSTITUTIONAL: No fever or chills EYES: No recent changes SKIN: No rash or itching CARDIOVASCULAR: chest pain, NO syncope, palpitations, or edema NOT RELATED TO MEALS RESPIRATORY: No SOB or cough GASTROINTESTINAL: No nausea, vomiting or abdominal pain NEUROLOGICAL: No headaches or weakness ENDOCRINE: No cold or heat intolerance GENITOURINARY: No urgency or frequency of urination MUSCULOSKELETAL: No back pain or joint pain LYMPHATICS: No enlarged lymph nodes PSYCHIATRIC: No anxiety or depression Cardiovascular: yes Chest Pain; No Palpitations, No Orthopnea, No Paroxysmal Noc. Dyspnea, No Edema, No Lt Headedness, No Other Gastrointestinal: Yes Nausea; No Vomiting, No Abdominal Pain, No Diarrhea, No Constipation, No Melena, No Hematochezia, No Other Musculoskeletal: No Gait Disturbance, No Joint Pain, No Joint Stiffness, No Joint Swelling, No Muscle Pain, No Muscular Weakness, No Pain In:, No Swelling In:, No Other Neurological: No Behavorial Changes, No Bowel/Bladder ControlChng, No Confusion, No Dizziness, No Gait Disturbance, No Headaches, No Impaired Coord/ balance, No Memory Loss, No Numbness/Tingling, No Seizures, No Speech Problems, No Tremors, No Visual Changes, No Weakness, No Other Vitals Vitals Vital Signs Date Time Temp Pulse Resp B/P (MAP) Pulse Ox O2 Delivery O2 Flow Rate FiO2 11/16/20 08:41 65 11/16/20 06:53 98.2 16 159/77 (104) 100 Room Air 98.2 Physical Exam General: Alert, Oriented X3, Cooperative, No acute distress Heart: Regular rate (SR), Normal S1, Normal S2, No murmurs Lungs: Clear Abdomen: Normal bowel sounds, Soft, No tenderness Extremities: No cyanosis, No edema Skin: No breakdown, No significant lesion, Other (scattered vitiligos) FINAL DIAGNOSIS Problems Medical Problems: (1) Chest pain Status: Acute Brief Hospital Course Ms. Olvera is a 70 old [sex] who presented with [ angina] CONDITION AT DISCHARGE: Improved Discharge Medications Current Medications Nitroglycerin (Nitrostat) 0.4 mg PRN Q5MIN PRN SL CHEST PAIN Last administered on 11/15/20at 10:03; Start 11/15/20 at 09:45 Potassium Chloride (Klor-Con) 40 meq 1X ONCE PO Last administered on 11/15/20at 11:29; Start 11/15/20 at 10:30; Stop 11/15/20 at 10:31; Status DC Potassium Phosphate (K-Phos Original) 500 mg 1X PO Last administered on 11/15/20at 11:00; Start 11/15/20 at 11:15 Aspirin (Alejandra Aspirin) 325 mg 1X ONCE PO Last administered on 11/15/20at 11:26; Start 11/15/20 at 11:15; Stop 11/15/20 at 11:16; Status DC Potassium Chloride (Klor-Con) 40 meq 1X ONCE PO ; Start 11/15/20 at 11:30; Stop 11/15/20 at 11:32; Status DC Potassium Chloride (Klor-Con) 20 meq 1X ONCE PO ; Start 11/16/20 at 11:30; Stop 11/16/20 at 11:31 Aspirin (Aspirin Chewable) 81 mg DAILY PO Last administered on 11/16/20at 08:41; Start 11/15/20 at 14:00 Atorvastatin Calcium (Lipitor) 40 mg QHS PO Last administered on 11/15/20at 22:33; Start 11/15/20 at 21:00 Acetaminophen/ Hydrocodone Bitart (Lortab 5/325) 1 tab PRN Q6HRS PRN PO MODERATE BACK PAIN; Start 11/15/20 at 11:45 Metoprolol Succinate (Toprol Xl) 75 mg DAILY PO ; Start 11/15/20 at 14:00; Stop 11/15/20 at 12:15; Status DC Montelukast Sodium (Singulair) 10 mg DAILY PO Last administered on 11/16/20at 08:40; Start 11/15/20 at 14:00 Pantoprazole Sodium (Protonix) 40 mg DAILYAC PO Last administered on 11/16/20at 06:30; Start 11/16/20 at 07:30 Chlorthalidone (Thalitone) 25 mg DAILY PO Last administered on 11/16/20at 08:41; Start 11/16/20 at 09:00 Hydralazine HCl (Apresoline) 25 mg TID PO ; Start 11/15/20 at 14:00; Stop 11/15/20 at 15:58; Status DC Losartan Potassium (Cozaar) 100 mg QHS PO ; Start 11/15/20 at 21:00; Stop 11/15/20 at 15:58; Status DC Metoprolol Succinate (Toprol Xl) 50 mg DAILY PO ; Start 11/15/20 at 14:00; Stop 11/15/20 at 15:58; Status DC Famotidine (Pepcid) 20 mg BID PO Last administered on 11/16/20at 08:41; Start 11/15/20 at 21:00 Sodium Chloride (Normal Saline Flush) 3 ml QSHIFT PRN IV AFTER MEDS AND BLOOD DRAWS; Start 11/15/20 at 11:45 Ondansetron HCl (Zofran) 4 mg PRN Q4HRS PRN IV NAUSEA/VOMITING; Start 11/15/20 at 11:45 Acetaminophen (Tylenol) 650 mg PRN Q4HRS PRN PO TEMP OVER 100.4F OR MILD PAIN; Start 11/15/20 at 11:45 Al Hydroxide/Mg Hydroxide (Mylanta Plus Xs) 30 ml PRN DAILY PRN PO HEARTBURN / GAS; Start 11/15/20 at 11:45 Sodium Monofluorophosphate (Fleet Adult) 133 ml PRN DAILY PRN CO CONSTIPATION; Start 11/15/20 at 11:45 Docusate Sodium (Colace) 100 mg PRN BID PRN PO HARD STOOLS; Start 11/15/20 at 11:45 Albuterol Sulfate (Ventolin Neb Soln) 2.5 mg PRN Q4HRS PRN NEB SHORTNESS OF BREATH; Start 11/15/20 at 11:45 Guaifenesin (Robitussin) 200 mg PRN Q4HRS PRN PO COUGH; Start 11/15/20 at 11:45 Lorazepam (Ativan) 0.5 mg PRN Q4HRS PRN PO ANXIETY / AGITATION; Start 11/15/20 at 11:45 Enoxaparin Sodium (Lovenox 40mg Syringe) 40 mg Q24H SQ Last administered on 11/15/20at 22:34; Start 11/15/20 at 21:00 Acetaminophen/ Hydrocodone Bitart (Lortab 5/325) 2 tab PRN Q6HRS PRN PO SEVERE BACK PAIN; Start 11/15/20 at 12:15 Amlodipine Besylate (Norvasc) 10 mg 1X ONCE PO Last administered on 11/15/20at 14:34; Start 11/15/20 at 14:30; Stop 11/15/20 at 14:31; Status DC Hydralazine HCl (Apresoline) 50 mg TID PO Last administered on 11/16/20at 08:41; Start 11/15/20 at 21:00; Stop 11/16/20 at 09:58; Status DC Losartan Potassium (Cozaar) 100 mg DAILY PO Last administered on 11/16/20at 08:40; Start 11/16/20 at 09:00 Carvedilol (Coreg) 6.25 mg BIDWMEALS PO ; Start 11/15/20 at 17:00; Stop 11/16/20 at 09:58; Status DC Carvedilol (Coreg) 3.125 mg BIDWMEALS PO ; Start 11/16/20 at 12:00 Hydralazine HCl (Apresoline) 100 mg BID PO ; Start 11/16/20 at 21:00 Isosorbide Mononitrate (Imdur) 30 mg DAILY PO ; Start 11/16/20 at 10:30 Amlodipine Besylate (Norvasc) 10 mg DAILY PO ; Start 11/17/20 at 09:00 Amlodipine Besylate (Norvasc) 10 mg 1X ONCE PO ; Start 11/16/20 at 10:30; Stop 11/16/20 at 10:31; Status DC Active Scripts Active Berg[place] 5-325 Tablet (Acetaminophen/Hydrocodone Bitart) 1 Each Tablet 1-2 Each PO PRN Q6HRS PRN as needed for pain Potassium Chloride (Potassium Chloride) 10 Meq Tab.sr.24h 10 Meq PO DAILY Reported Metformin Hcl 500 Mg Tablet 500 Mg PO BIDWMEALS Toprol Xl (Metoprolol Succinate) 50 Mg Tab.er.24h 50 Mg PO DAILY Prilosec Otc (Omeprazole Magnesium) 20 Mg Tablet.dr 20 Mg PO DAILY Hydralazine Hcl 25 Mg Tablet 1 Tab PO TID Losartan Potassium 100 Mg Tablet 100 Mg PO HS Fish Oil 1,000 Mg Softgel (Orrtanna-3 Fatty Acids/Fish Oil) 1 Each Capsule 1 Each PO Aspirin 81 Mg Tab.chew 1 Tab PO DAILY Cyclobenzaprine Hcl 10 Mg Tablet 1 Tab PO QHS Atorvastatin Calcium 40 Mg Tablet 1 Tab PO DAILY Singulair Tablet (Montelukast Sodium) 10 Mg Tablet 1 Tab PO DAILY Chlorthalidone (Chlorthalidone) 25 Mg Tablet 1 Tab PO DAILY Vital Signs Vital Signs Date Time Temp Pulse Resp B/P (MAP) Pulse Ox O2 Delivery O2 Flow Rate FiO2 11/16/20 08:41 65 11/16/20 06:53 98.2 16 159/77 (104) 100 Room Air 98.2 Labs Laboratory Tests Test 11/15/20 09:24 11/15/20 10:09 11/15/20 13:50 11/15/20 17:04 White Blood Count 6.4 x10^3/uL (4.0-11.0) Red Blood Count 5.41 x10^6/uL (3.50-5.40) Hemoglobin 12.1 g/dL (12.0-15.5) Hematocrit 37.6 % (36.0-47.0) Mean Corpuscular Volume 70 fL (79-100) Mean Corpuscular Hemoglobin 22 pg (25-35) Mean Corpuscular Hemoglobin Concent 32 g/dL (31-37) Red Cell Distribution Width 16.7 % (11.5-14.5) Platelet Count 236 x10^3/uL (140-400) Neutrophils (%) (Auto) 39 % (31-73) Lymphocytes (%) (Auto) 47 % (24-48) Monocytes (%) (Auto) 11 % (0-9) Eosinophils (%) (Auto) 2 % (0-3) Basophils (%) (Auto) 1 % (0-3) Neutrophils # (Auto) 2.5 x10^3/uL (1.8-7.7) Lymphocytes # (Auto) 3.0 x10^3/uL (1.0-4.8) Monocytes # (Auto) 0.7 x10^3/uL (0.0-1.1) Eosinophils # (Auto) 0.1 x10^3/uL (0.0-0.7) Basophils # (Auto) 0.1 x10^3/uL (0.0-0.2) Platelet Estimate Adequate (ADEQUATE) Large Platelets Few Hypochromasia Mod Anisocytosis Present Microcytosis Mod Sodium Level 143 mmol/L (136-145) Potassium Level 3.2 mmol/L (3.5-5.1) Chloride Level 102 mmol/L (98-107) Carbon Dioxide Level 28 mmol/L (21-32) Anion Gap 13 (6-14) Blood Urea Nitrogen 13 mg/dL (7-20) Creatinine 0.7 mg/dL (0.6-1.0) Estimated GFR (Cockcroft-Gault) 100.1 BUN/Creatinine Ratio 19 (6-20) Glucose Level 94 mg/dL (70-99) Calcium Level 9.7 mg/dL (8.5-10.1) Magnesium Level 1.9 mg/dL (1.8-2.4) Total Bilirubin 0.4 mg/dL (0.2-1.0) Aspartate Amino Transf (AST/SGOT) 17 U/L (15-37) Alanine Aminotransferase (ALT/SGPT) 24 U/L (14-59) Alkaline Phosphatase 68 U/L (46-116) Troponin I Quantitative < 0.017 ng/mL (0.000-0.055) < 0.017 ng/mL (0.000-0.055) < 0.017 ng/mL (0.000-0.055) RT-Bji-D-Type Natriuretic Peptide 319 pg/mL (0-124) Total Protein 7.4 g/dL (6.4-8.2) Albumin 3.8 g/dL (3.4-5.0) Albumin/Globulin Ratio 1.1 (1.0-1.7) Lipase 105 U/L (73-393) SARS-CoV-2 RNA (DAT) Negative (Negative) SARS-CoV-2 Antigen (Rapid) Negative (NEGATIVE) Thyroid Stimulating Hormone (TSH) 0.801 uIU/mL (0.358-3.74) Test 11/15/20 23:33 11/16/20 07:28 11/16/20 09:00 Glucose (Fingerstick) 136 mg/dL (70-99) 115 mg/dL (70-99) Sodium Level 142 mmol/L (136-145) Potassium Level 2.8 mmol/L (3.5-5.1) Chloride Level 100 mmol/L (98-107) Carbon Dioxide Level 30 mmol/L (21-32) Anion Gap 12 (6-14) Blood Urea Nitrogen 10 mg/dL (7-20) Creatinine 1.0 mg/dL (0.6-1.0) Estimated GFR (Cockcroft-Gault) 66.3 Glucose Level 138 mg/dL (70-99) Calcium Level 10.7 mg/dL (8.5-10.1) Triglycerides Level 144 mg/dL (0-150) Cholesterol Level 150 mg/dL (0-200) LDL Cholesterol, Calculated 80 mg/dL (0-100) VLDL Cholesterol, Calculated 29 mg/dL (0-40) Non-HDL Cholesterol Calculated 109 mg/dL (0-129) HDL Cholesterol 41 mg/dL (40-60) Cholesterol/HDL Ratio 3.7 Laboratory Tests Test 11/15/20 13:50 11/15/20 17:04 11/15/20 23:33 11/16/20 07:28 Troponin I Quantitative < 0.017 ng/mL (0.000-0.055) < 0.017 ng/mL (0.000-0.055) Thyroid Stimulating Hormone (TSH) 0.801 uIU/mL (0.358-3.74) Glucose (Fingerstick) 136 mg/dL (70-99) 115 mg/dL (70-99) Test 11/16/20 09:00 Sodium Level 142 mmol/L (136-145) Potassium Level 2.8 mmol/L (3.5-5.1) Chloride Level 100 mmol/L (98-107) Carbon Dioxide Level 30 mmol/L (21-32) Anion Gap 12 (6-14) Blood Urea Nitrogen 10 mg/dL (7-20) Creatinine 1.0 mg/dL (0.6-1.0) Estimated GFR (Cockcroft-Gault) 66.3 Glucose Level 138 mg/dL (70-99) Calcium Level 10.7 mg/dL (8.5-10.1) Triglycerides Level 144 mg/dL (0-150) Cholesterol Level 150 mg/dL (0-200) LDL Cholesterol, Calculated 80 mg/dL (0-100) VLDL Cholesterol, Calculated 29 mg/dL (0-40) Non-HDL Cholesterol Calculated 109 mg/dL (0-129) HDL Cholesterol 41 mg/dL (40-60) Cholesterol/HDL Ratio 3.7 Allergies Allergies Coded Allergies Type Severity Reaction Last Updated Verified No Known Drug Allergies 01/25/16 No Disposition/Orders: D/C to Home Justicifation of Admission Dx: Justifications for Admission: Justification of Admission Dx: No YUE ROLDAN MD Nov 16, 2020 11:23
[2020-11-16] MEDS ORDERED: NITR0.4T24 SL (11:26)
[2020-11-16] MEDS ORDERED: CARV3.1210 PO (11:26)
[2020-11-16] MEDS ORDERED: HYDR-2869 PO (11:26)
[2020-11-16] MEDS ORDERED: ISOS30TA68 PO (11:26)
[2020-11-16] MEDS ORDERED: DOCU100C28 PO (11:26)
[2020-11-16] MEDS ORDERED: AMLO-187 PO (11:26)
--- NOTE | 2020-11-16 11:28 | DISCH ---
DISCHARGE INSTRUCTIONS Condition on Discharge Condition on Discharge: Stable Activity After Discharge Activity Instructions for Disc: No restrictions Bathing Instructions: Shower-keep dressing dry Lifting Instructions after Dis: No heavy lifting, No pulling or pushing, Do not lift >10 pounds, Add. restrict see below Driving Instructions after Dis: Do not drive today Weight Bearing Status after Di: No restrictions Diet after Discharge Diet after Discharge: Cardiac, No Added Salt Liquid Texture: Thin Liquid Wound Incision Care Wound/Incision Care: Keep wound/cast CDI Checks after Discharge Checks after discharge: Check blood press - daily Contacting the DRBarbara after DC Call your doctor for: If your condition worsens Follow-Up Follow up with: cardiology soon as directed Follow Up With: PCP IN 7 DAYS Treatment/Equipment after DC Adaptive Equipment Issued: None YUE ROLDAN MD Nov 16, 2020 11:28
[2020-11-16] MEDS ORDERED: POTASSIUM BICARB 20 MEQ EFFERVESCENT TABLET. PO ONE ×3 (11:30→17:30)
[2020-11-16] MEDS ORDERED: POTASSIUM CHLORIDE 20 MEQ TABLET.ER. PO ONE (11:30)
[2020-11-16] MEDS: CARVEDILOL 3.125 MG TABLET. PO SCH ×2 (11:55→17:23)
--- NOTE | 2020-11-16 13:15 | NUR ---
SS following for discharge planning. SS reviewed pt chart and discussed with pt RN. Pt is from home and is currently on room air. COVID19 negative. Cardiology consulted. Discharge order on the chart for home with self care.
[2020-11-16 14:46] VITALS: BP 128/68
--- NOTE | 2020-11-16 17:51 | NUR ---
Discharge: Teaching verbal and written. Reviewed orders, ECHO, Stress test, hypokalemia, HTN, bradycardia, diet, ect. Patient verbalized understanding. IV removed without complications, catheter tip in-tact. Belongings with patient. Patient assisted off of unit via wheelchair accompanied by RN
== END 2020-11-16 17:40 | disposition home or self-care (01) ==
LOC: ER 09:12 → ED HOLD 10:55 → 6 SOUTH 15:35
PROVIDERS: ADMIT Family Medicine; ATTEND Family Medicine
DX: I25.110 Atherosclerotic heart disease of native coronary artery with unstable angina pectoris (principal); Z20.822 Contact with and (suspected) exposure to COVID-19; I25.2 Old myocardial infarction; F12.90 Cannabis use, unspecified, uncomplicated; R11.2 Nausea with vomiting, unspecified; I11.0 Hypertensive heart disease with heart failure; I50.31 Acute diastolic (congestive) heart failure; E11.9 Type 2 diabetes mellitus without complications; E78.5 Hyperlipidemia, unspecified; E87.6 Hypokalemia; E89.0 Postprocedural hypothyroidism; F31.9 Bipolar disorder, unspecified; F43.10 Post-traumatic stress disorder, unspecified; I16.0 Hypertensive urgency; I31.3 Pericardial effusion (noninflammatory); L93.0 Discoid lupus erythematosus; I44.0 Atrioventricular block, first degree; Z79.82 Long term (current) use of aspirin; Z79.899 Other long term (current) drug therapy; Z87.891 Personal history of nicotine dependence; Z82.49 Family history of ischemic heart disease and other diseases of the circulatory system; Z86.16 Personal history of COVID-19; Z90.710 Acquired absence of both cervix and uterus; Z95.5 Presence of coronary angioplasty implant and graft
CPT/HCPCS: 36415; 71045; 80048; 80053; 80061; 82962; 83690; 83735; 83880; 84132; 84443; 84484; 85025; 87426; 93306; 96372; 99285; G0378; J1650; U0003; U0005; G0379

== ENCOUNTER 2020-11-24 14:39 | Emergency (ER) | payer OTHER ==
[~2020-11-24] VITALS: Ht 162.6 cm; Wt 49.0 kg
[~2020-11-24 14:39] MED LIST changes: +CARV3.1210 PO; +DOCU100C28 PO; +HYDR-2869 PO; +ISOS30TA68 PO; +METF500T16 PO; +NITR0.4T24 SL
[2020-11-24 15:03] VITALS: BP 149/76
--- NOTE | 2020-11-24 16:14 | PHYS DOC ---
Past Medical History Past Medical History: CAD, Hypertension, [place], Other Additional Past Medical Histor: VITILIGO, Peripheral neuropathy, DDD Past Surgical History: Hysterectomy, Other Additional Past Surgical Histo: cardiac cath with stents, Thyroidectomy Smoking Status: Never Smoker Alcohol Use: None Drug Use: Marijuana General Adult EDM: Chief Complaint: HYPERTENSION HPI: HPI: 70-year-old -Citizen Of [place] female past medical history of CAD, hypertension, vitiligo and neuropathy, presents the ED with complaints of palpitations stating "my heart was beating fast." Her blood pressure was 170/110 at that time and she called her son to bring her to the emergency department. Patient denies any associated chest pain, dyspnea, headache, dizziness, near-syncope, syncope or neurologic deficits. Patient reports associated nausea with palpitations that lasted for approximately 10 minutes. Review of Systems: Review of Systems: Constitutional: Denies fever or chills. [] Eyes: Denies change in visual acuity. [] HENT: Denies nasal congestion or sore throat. [] Respiratory: Denies cough or shortness of breath. [] Cardiovascular: Denies chest pain or edema. [] GI: Denies abdominal pain, vomiting, or diarrhea. [] : Denies dysuria or hematuria Musculoskeletal: Denies back pain or joint pain. [] Integument: Denies rash or diaphoresis Neurologic: Denies headache, focal weakness or sensory changes. [] Endocrine: Denies polyuria or polydipsia. [] Lymphatic: Denies swollen glands. [] Psychiatric: Denies depression or anxiety. [] Heart Score: C/O Chest Pain: No Risk Factors: Risk Factors: DM, Current or recent (<one month) smoker, HTN, HLP, family history of CAD, obesity. Risk Scores: Score 0 - 3: 2.5% MACE over next 6 weeks - Discharge Home Score 4 - 6: 20.3% MACE over next 6 weeks - Admit for Clinical Observation Score 7 - 10: 72.7% MACE over next 6 weeks - Early Invasive Strategies Allergies: Allergies: Allergies Coded Allergies Type Severity Reaction Last Updated Verified No Known Drug Allergies 01/25/16 No Physical Exam: PE: Constitutional: Well developed, well nourished, no acute distress, non-toxic appearance, bp in ed 146/76 HENT: Normocephalic, atraumatic, Eyes: EOMI, conjunctiva normal, no discharge. Neck: Normal range of motion, supple, Cardiovascular: S1/2 present, regular rhythm Lungs & Thorax: Speaking in full sentences, bilateral equal chest rise, no tachypnea or increased work of breathing Abdomen: soft, no tenderness, Skin: Warm, dry, no erythema, no rash. [] Back: No tenderness, no CVA tenderness. [] Extremities: No tenderness, no cyanosis, no lower extremity edema Neurologic: Alert and oriented X 3, normal motor function, normal sensory funct ion, no focal deficits noted, steady gait Psychologic: Affect normal, judgement normal, mood normal. [] Current Patient Data: Vital Signs: Vital Signs Date Time Temp Pulse Resp B/P (MAP) Pulse Ox O2 Delivery O2 Flow Rate FiO2 11/24/20 15:03 97.6 70 18 149/76 (88) 100 Room Air 97.6 EKG: EKG: [] Radiology/Procedures: Radiology/Procedures: [] Course & Med Decision Making: Course & Med Decision Making Pertinent Labs and Imaging studies reviewed. (See chart for details) Concern for brief episode of palpitations in the setting of hypertension. Patient was admitted within the past week. Negative covid test. Patient with no recurrence of symptoms in the ED. Has mild, asymptomatic hypertension. No associated chest pain, dyspnea or neurologic deficits. Shortly after ED arrival patient subset of her room she is a bathroom and comes back asked if she can be discharged stating "I feel fine. I want to go home and eat my own food." Will discharge home with strict ED return precautions were given for facial droop, confusion, neurologic deficits, syncope, chest pain or dyspnea. Encouraged urgent outpatient follow-up with PMD for blood pressure check in the next 24 to 40 hours. Life-threatening processes were considered but are low suspicion at this time, given history, physical exam and ED workup. Pt was educated on all prescription medications and adverse effects. All patient's questions were answered and pt was stable at time of discharge. Life/limb-threatening differential includes but is not limited to, acute myocardial infarction, aortic dissection, congestive heart failure, esophageal injury including rupture, surgical abdomen, arrhythmia, cardiomyopathy, myocarditis, pericarditis, peptic ulcer disease, pneumomediastinum, pneumonia, pneumothorax, pulmonary embolus, unstable angina, rib fracture, contusion, pericardial tamponade or effusion, traumatic injury including mediastinal hemorrhage or hematoma, or pulmonary contusion. I have spoken with the patient and/or caregivers. I explained the patient's condition, diagnoses and treatment plan based on the information available to me at this time. I have answered the patient and/or caregiver's questions and addressed any concerns. The patient and/or caregivers have a good understanding of patient's diagnosis, condition and treatment plan as can be expected at this point. Vital signs have been stable. Patient's condition is stable and appropriate for discharge from the emergency department. Patient will pursue further outpatient evaluation with primary care physician or other designated or consulting physician as outlined in the discharge instructions. The patient and/or caregivers are agreeable to this plan of care and follow-up instructions have been explained in detail. The patient and/or caregivers have received these instructions in written form and have expressed an understanding of the discharge instructions. The patient and/or caregivers are aware that any significant change of condition or worsening of symptoms should prompt immediate return to this or the closest emergency department or call to 1Barbara Mcneill Disclaimer: Osito Disclaimer: This electronic medical record was generated, in whole or in part, using a voice recognition dictation system. Departure Departure Impression: Primary Impression: Hypertension Additional Impression: Palpitations Disposition: 01 HOME / SELF CARE / HOMELESS Condition: STABLE Referrals: Zulay RICE MD (PCP) Follow-up with your primary care physician in 24 to 48 hours OR FOLLOW UP WITH FAMILY MEDICINE: [address], [address] [place] [address] Patient Instructions: Hypertension, Palpitations Additional Instructions: EMERGENCY DEPARTMENT GENERAL DISCHARGE INSTRUCTIONS Thank you for coming to [facility] Emergency Department (ED) today and trusting us with you care. We trust that you had a positive experience in our Emergency Department. If you wish to speak to the department management, you may call the Director at [phone]. YOUR FOLLOW UP INSTRUCTIONS ARE FOLLOWS: 1. Do you have a private Doctor? If you do not have a private doctor, please ask for a resource list of physicians or clinics that may be able to assist you with follow up care. 2. The Emergency Physicain has interpreted your x-rays. The X-Ray specialist will also review them. If there is a change in the findings, you will be notified in 48 hours when at all possible. 3. A lab test or culture has been done, your results will be reviewed and you will be notified if you need a change in treatment. ADDITIONAL INSTRUCTIONS AND INFORMATION: 1. Your care today has been supervised by a physician who is specially trained in emergency care. Many problems require more than one evaluation for a complete diagnosis and treatment. We recommend that you schedule your follow up appointment as recommended to ensure complete treatment of you illness or injury. If you are unable to obtain follow up care and continue to have a problem, or if your condition worsens, we recommend that you return to the ED. 2. We are not able to safely determine your condition over the phone nor are we able to give sound medical advice over the phone. For these safety reasons, if you call for medical advice we will ask you to come to the ED for further evaluation. 3. If you have any questions regarding these discharge instructions please call the ED at [phone]. SAFETY INFORMATION: In the interest of safety, wellness, and injury prevention; we encourage you to wear your sealbelt, if you smoke; quite smoking, and we encourage family to use a protective helmet for bicycling and other sporting events that present an increased risk for head injury. IF YOUR SYMPTOMS WORSEN OR NEW SYMPTOMS DEVELOP, OR YOU HAVE CONCERNS ABOUT YOUR CONDITION; OR IF YOUR CONDITION WORSENS WHILE YOU ARE WAITING FOR YOUR FOLLOW UP APPOINTMENT; EITHER CONTACT YOUR PRIMARY CARE DOCTOR, THE PHYSICIAN WHOSE NAME AND NUMBER YOU WERE GIVEN, OR RETURN TO THE ED IMMEDIATELY. KAITLIN SAMSON DO Nov 24, 2020 16:14
== END 2020-11-24 16:29 | disposition home or self-care (01) ==
LOC: ER 14:39
DX: I10 Essential (primary) hypertension (principal); R00.2 Palpitations; I25.10 Atherosclerotic heart disease of native coronary artery without angina pectoris; I25.2 Old myocardial infarction; Z95.5 Presence of coronary angioplasty implant and graft
CPT/HCPCS: 99281

== ENCOUNTER → 2020-12-24 | Outpatient (CLI) | payer OTHER ==
[2020-11-24 15:03] VITALS: BP 149/76
--- NOTE | 2020-12-24 09:23 | RAD ---
EXAMINATION: US RENAL ARTERY DUPLEX INDICATION: 70 years, Female, hypotension. COMPARISON: None TECHNIQUE: Grayscale, color and spectral doppler evaluation of the kidneys and renal arteries was per formed. FINDINGS: AORTIC VELOCITY: 159 cm/s. RIGHT KIDNEY: MEASURES: 9.9 cm in length. MORPHOLOGY/PARENCHYMA: Normal corticomedullary differentiation with no shadowing calculus or discrete masses. COLLECTING SYSTEM: No hydronephrosis. RIGHT SEGMENTAL ARTERY RESISTIVE INDEX: 0.5. SEGMENTAL RENAL ARTERY WAVEFORMS: Normal. RIGHT RENAL ARTERY PEAK SYSTOLIC AND END DIASTOLIC VELOCITIES IN CM/S: PROX PSV/EDV: 106 cm/s. MID PSV/EDV: 100 cm/s. DISTAL PSV/EDV: 93 cm/s. RENAL VEIN: Patent. Right renal artery/aorta: 0.67 LEFT KIDNEY: MEASURES: 11.3 cm in length. MORPHOLOGY/PARENCHYMA: Normal corticomedullary differentiation with no shadowing calculus or discrete masses. COLLECTING SYSTEM: No hydronephrosis. LEFT SEGMENTAL ARTERY RESISTIVE INDEX: 0.6. SEGMENTAL RENAL ARTERY WAVEFORMS: Normal. LEFT RENAL ARTERY PEAK SYSTOLIC AND END DIASTOLIC VELOCITIES IN CM/S: PROX PSV/EDV: 69 cm/s. MID PSV/EDV: 73 cm/s. DISTAL PSV/EDV: 71 cm/s. RENAL VEIN: Patent Left renal artery/aorta: 0.46 OTHER: None. IMPRESSION: 1. No evidence of renal artery stenosis bilaterally. 2. Normal sonographic appearance of the kidneys. Electronically signed by: Howard Eddy MD (12/24/2020 9:21 AM) [facility]
== END ==
LOC: US 10:12
PROVIDERS: ATTEND Internal Medicine Cardiovascular Disease
DX: I10 Essential (primary) hypertension (principal)
CPT/HCPCS: 93975

== ENCOUNTER → 2020-12-24 | Outpatient (CLI) | payer OTHER ==
[2020-11-24 15:03] VITALS: BP 149/76
[~2020-12-24] MED LIST changes: +REGADENOSON 0.4 MG/5 ML DISP.SYRIN. IV ONE
--- NOTE | 2020-12-26 10:06 | RAD ---
MR#: [id number] Date of Study: 12/24/2020 Ordering Physician: LILLIANA MARTINEZ, Referring Physician: REJI YORK Tech: RT Song (R) (N) APPROVED REPORT Test Type: Pharmacological Stress Nurse/Tech: Yolanda Pna RN Test Indications: CAD Cardiac History: 3 stents at [facility], HTN, DM, x-smoker Medications: See Electronic Medical Record Medical History: See Electronic Medical Record Resting ECG: SR 1 degree heart block Resting Heart Rate: 75 bpm Resting Blood Pressure: 148/72mmHg Pretest Chest Pain: None Nurse/Tech Notes lungs CTA, S1S2 Consent: The procedure was explained to the patient in lay terms. Informed consent was witnessed. Kayode eout was entered into [employer] History and Stress Test performed by ANDREA Mauricio Pharm. Details Pharmacologic stress testing was performed using 0.4mg per 5ml of regadenoson given intravenously ove r 7-10 seconds. Stress Symptoms No chest pain or symptoms. POST EXERCISE Reason for Termination: Infusion complete Max HR: 118 bpm Max Blood Pressure: 164/68mmHg Blood Pressure response to exercise: Normal blood pressure response during stress. Heart Rate response to exercise: normal response Chest Pain: No. Arrhythmia: No. ST Change: No. INTERPRETATION Stress EKG Conclusion: The resting EKG shows a sinus rhythm with mild nonspecific ST-T wave changes. The stress EKG shows no significant changes from baseline. No EKG evidence of stress-induced ischemia. Imaging Protocol IMAGE PROTOCOL: Rest Tc-99m/stress Tc-99m 1 day Rest: Stress: Viability: Radiopharm.Tc99m TpidizkmtTi37f Sestamibi Nhvw91cAo 33mCi Duration 15min. 15min. Img Date 12/24/2020 12/24/2020 Inj-Img Lxwg21hby. 60min. Rest Admin Site:IV - Left AntecubitalAdministrator:ANDREA Mauricio Stress Admin Site: IV - Left AntecubitalAdministrator: ANDREA Mauricio STRESS DATA End Diast. Vol.80.0mlLVEDV index BSA46.0ml End Syst. Vol.25.0mlLVESV index BSA15.0ml Myocardial Yblh213.0gEject. Dgdgrnui07.0% Stress Scores Regional WT1.00Summed WT8.00 Regional WM0.00Summed WM2.00 LV Perfusion The stress scans showed minimal apical thinning. The rest scans showed no significant defects. Nuclear imaging shows no significant reversible ischemia. Nuclear imaging shows no prior infarct. Wall Motion Left ventricular systolic function is normal with no regional wall motion abnormalities and an ejecti on fraction of 67%. LV Perf. Quant 17 Seg. SSS2.00 17 Seg. SRS0.00 17 Seg. SDS2.00 Stress Defect Extent (% LAD)1.30Rest Defect Extent (% LAD)0.00Rev. Defect Extent (% LAD)1.30 Stress Defect Extent (% LCX) 0.00Rest Defect Extent (% LCX)0.00Rev. Defect Extent (% LCX)0.00 Stress Defect Extent (% RCA)0.00Rest Defect Extent (% RCA)0.00Rev. Defect Extent (% RCA)0.00 Stress Defect Extent (% ELICEO)1.30Rest Defect Extent (% ELICEO)0.00Rev. Defect Extent (% ELICEO)1.30 Conclusion 1. No EKG evidence of stress-induced ischemia. 2. Nuclear imaging shows slight apical thinning on stress images but no clear evidence of reversible ischemia or infarct. 3. Left ventricular systolic function is normal with an ejection fraction of 67%. 4. Moderately low risk Lexiscan nuclear stress test. Signed by : Tripp Toro MD Electronically Approved : 12/26/2020 10:06:03
== END ==
LOC: NM 06:58
PROVIDERS: ATTEND Internal Medicine Cardiovascular Disease
DX: R07.9 Chest pain, unspecified (principal)
CPT/HCPCS: 78452; 93017; A9500; J2785

== ENCOUNTER 2021-03-31 12:54 | Emergency (ER) | payer OTHER ==
[~2021-03-31] VITALS: Ht 162.6 cm; Wt 65.9 kg
[~2021-03-31 12:54] MED LIST changes: +CYCL10TA19 PO; -CYCL10TA2 PO; -REGADENOSON 0.4 MG/5 ML DISP.SYRIN. IV ONE
[2021-03-31 15:45] VITALS: BP 169/83
--- NOTE | 2021-03-31 16:02 | PHYS DOC ---
Past Medical History Past Medical History: CAD, Hypertension, [place], Other Additional Past Medical Histor: VITILIGO, Peripheral neuropathy, DDD Past Surgical History: Hysterectomy, Other Additional Past Surgical Histo: cardiac cath with stents, Thyroidectomy Smoking Status: Never Smoker Alcohol Use: None Drug Use: Marijuana General Adult EDM: Chief Complaint: HYPERTENSION HPI: HPI: Patient is a 70 year old female with history of hypertension who presents the ED today complaining of high blood pressure. Patient states this morning her blood pressure was 207/104 when she woke up, she states she took her blood pressure medicine and the blood pressure came down but decided to call EMS to come to the ED. She states she knows her blood pressure was running high because she has been eating salty foods lately which are not recommended for high blood pressure. Patient denies any chest pain, headache or shortness of breath. She states she smokes weed frequently and plans to stop today Review of Systems: Review of Systems: Constitutional: Denies fever or chills. [] Eyes: Denies change in visual acuity. [] HENT: Denies nasal congestion or sore throat. [] Respiratory: Denies cough or shortness of breath. [] Cardiovascular: Reports high blood pressure. Denies chest pain or edema. [] GI: Denies abdominal pain, nausea, vomiting, bloody stools or diarrhea. [] : Denies dysuria. [] Musculoskeletal: Denies back pain or joint pain. [] Integument: Denies rash. [] Neurologic: Denies headache, focal weakness or sensory changes. [] Psychiatric: Denies depression or anxiety. [] Heart Score: C/O Chest Pain: N/A Risk Factors: Risk Factors: DM, Current or recent (<one month) smoker, HTN, HLP, family history of CAD, obesity. Risk Scores: Score 0 - 3: 2.5% MACE over next 6 weeks - Discharge Home Score 4 - 6: 20.3% MACE over next 6 weeks - Admit for Clinical Observation Score 7 - 10: 72.7% MACE over next 6 weeks - Early Invasive Strategies Allergies: Allergies: Allergies Coded Allergies Type Severity Reaction Last Updated Verified No Known Drug Allergies 01/25/16 No Physical Exam: PE: Constitutional: Well developed, well nourished, no acute distress, non-toxic appearance. [] HENT: Normocephalic, atraumatic, bilateral external ears normal, oropharynx moist, no oral exudates, nose normal. [] Eyes: PERRLA, EOMI, conjunctiva normal, no discharge. [] Neck: Normal range of motion, no tenderness, supple, no stridor. [] Cardiovascular:Heart rate regular rhythm, no murmur [] Lungs & Thorax: Bilateral breath sounds clear to auscultation [] Abdomen: Bowel sounds normal, soft, no tenderness, no masses, no pulsatile masses. [] Skin: Alopecia noted on her scalp, vitiligo throughout her skin from head to toe Back: No tenderness, no CVA tenderness. [] Extremities: No tenderness, no cyanosis, no clubbing, ROM intact, no edema. [] Neurologic: Alert and oriented X 3, normal motor function, normal sensory function, no focal deficits noted. Cranial nerves II through XII intact Psychologic: Affect normal, judgement normal, mood normal. [] EKG: EKG: [] Radiology/Procedures: Radiology/Procedures: [] Course & Med Decision Making: Course & Med Decision Making Pertinent Labs and Imaging studies reviewed. (See chart for details) This is a 70-year-old female patient presenting to the ED today concerned her blood pressure was high. She reports blood pressure was 207/104 this morning she took her BP medicines. She states she has been eating sodium-based food during the holidays which made her blood pressure higher. Patient denies any symptoms in the ED. Blood pressure was taken noted at 169/83. She decided to leave. She has a PCP and states follow-up as soon as she can Dragon Disclaimer: Osito Disclaimer: This electronic medical record was generated, in whole or in part, using a voice recognition dictation system. Departure Departure Impression: Primary Impression: High blood pressure Qualified Codes: I10 - Essential (primary) hypertension Disposition: HOME / SELF CARE / HOMELESS Condition: STABLE Referrals: Zulay RICE MD (PCP) call his office tomorrow morning and set up a follow up appointment Patient Instructions: Hypertension Additional Instructions: You were evaluated in the emergency room for high blood pressure. We encourage you to avoid sodium foods, spicy foods, fatty foods, greasy foods. Please continue taking your blood pressure medicines and follow-up with your primary care doctor next week. PAUL CALIX APRN Mar 31, 2021 16:02
== END 2021-03-31 16:06 | disposition home or self-care (01) ==
LOC: ER 12:54
DX: I10 Essential (primary) hypertension (principal); I25.10 Atherosclerotic heart disease of native coronary artery without angina pectoris; I25.2 Old myocardial infarction
CPT/HCPCS: 99283

== ENCOUNTER 2021-05-28 07:45 | Emergency (ER) | payer OTHER ==
[~2021-05-28] VITALS: Ht 162.6 cm; Wt 55.0 kg
[2021-05-28] MEDS ORDERED: IOHEXOL 300 MG/ML 100ML VIAL. IV ONE (08:30)
--- NOTE | 2021-05-28 08:32 | RAD ---
AP chest. HISTORY: Dysphasia AP view was taken of the chest. Lungs are clear. Heart is normal in size. There is no effusion. IMPRESSION: 1. No acute infiltrates. Electronically signed by: Giacomo Amin MD (05/28/2021 8:29 AM) [facility]
[2021-05-28 08:36] LABS: BASO # 0.1 x10^3/uL (0.0-0.2); BASO % 3 % (0-3); EOS % 1 % (0-3); HEMATOCRIT 35.2 % (36.0-47.0); HEMOGLOBIN 11.4 g/dL (12.0-15.5); LYMPH # 0.9 x10^3/uL (1.0-4.8); LYMPH % 19 % (24-48); MEAN CORPUSCULAR HEMOGLOBIN 21 pg (25-35); MEAN CORPUSCULAR HGB CONC 32 g/dL (31-37); MEAN CORPUSCULAR VOLUME 66 fL (79-100); MONO # 0.4 x10^3/uL (0.0-1.1); MONO % 10 % (0-9); NEUT % 67 % (31-73); PLATELET COUNT 251 x10^3/uL (140-400); RED BLOOD COUNT 5.38 x10^6/uL (3.50-5.40); RED CELL DISTRIBUTION WIDTH 16.6 % (11.5-14.5); WHITE BLOOD COUNT 4.4 x10^3/uL (4.0-11.0)
[2021-05-28 08:46] LABS: ALBUMIN 3.5 g/dL (3.4-5.0); ALBUMIN/GLOBULIN RATIO 0.9 (1.0-1.7); CALCIUM 8.7 mg/dL (8.5-10.1); CREATININE 0.6 mg/dL (0.6-1.0); GFR 119.6; MAGNESIUM 1.6 mg/dL (1.8-2.4); TOTAL BILIRUBIN 0.2 mg/dL (0.2-1.0); TOTAL PROTEIN 7.5 g/dL (6.4-8.2)
[2021-05-28 08:59] LABS: POTASSIUM 2.2 mmol/L (3.5-5.1)
[2021-05-28 09:26] LABS: HYPOCHROMIA SLIGHT; MICROCYTOSIS MOD; PLT ESTIMATE ADEQUATE (ADEQUATE)
[2021-05-28 09:27] LABS: BURR CELLS PRESENT; TARGET CELLS PRESENT
[2021-05-28] MEDS ORDERED: POTASSIUM CHLORIDE 20 MEQ TABLET.ER. PO ONE (09:30)
[2021-05-28] MEDS ORDERED: POTASSIUM CHLORIDE 10MEQ 100 ML IV ONE (10:00)
--- NOTE | 2021-05-28 10:13 | RAD ---
CT NECK SOFT TISSUE WITH IV CONTRAST History: Dysphagia Comparison: None. Technique: CT of the neck with intravenous contrast. Findings: Mucosa: No mass in the nasal cavity, nasopharynx, oral cavity, oropharynx, larynx, hypopharynx, or pr oximal trachea/esophagus. Oral cavity is obscured by dental artifact. Glands: Enlarged heterogeneous left thyroid gland with hypoattenuating nodular approximately 1.7 cm. Enlarged thyroid causes leftward deviation of the trachea and esophagus. Surgically absent right thyr oid. The bilateral parotid and submandibular glands are unremarkable. Nodes: No pathologically enlarged or necrotic cervical lymph nodes. Vessels: Heavy atherosclerotic calcification of the proximal left internal carotid, Limited evaluatio n of known angiogram study, likely greater than 75 percent stenosis. Tortuous course of the proximal left internal carotid Bones: Multilevel degenerative changes of the cervical spine with upper cervical facet hypertrophy an d lower cervical disc space narrowing and uncovertebral hypertrophy. Potential for foraminal stenoses greatest at C5-C6 and C6-C7. Other: Peripheral left upper lobe nodule measuring 4 mm (axial image 27). Coronary artery calcificati ons partially visualized. Impression: 1. Enlarged heterogeneous left thyroid gland with rightward deviation of the trachea and esophagus. Multiple left thyroid nodules, largest measures approximately 1.7 cm. Recommend thyroid ultrasound fo r further evaluation. 2. Severe left ICA stenosis at the carotid bulb. Consider carotid ultrasound for further evaluation. 3. Multilevel disc and facet disease of the cervical spine with potential for foraminal stenoses at multiple levels. 4. Left upper lobe pulmonary nodule measuring 4 mm. Recommend follow-up according to 2017 Fleischner Society Guidelines for solid pulmonary nodules: <6 mm: In a low risk patient, no routine follow-up. In a high risk patient (history of smoking or other known risk factors), optional CT at 12 months. Ce rtain paitents with suspicious nodule morphology, upper lobe location, or both may warrant 12-month f ollow-up. ------ Exposure: One or more of the following individualized dose reduction techniques were utilized for thi s examination: 1. Automated exposure control 2. Adjustment of the mA and/or kV according to patient size 3. Use of iterative reconstruction technique. Electronically signed by: Mitchell Quinn MD (05/28/2021 10:11 AM) [id number]
--- NOTE | 2021-05-28 12:18 | PHYS DOC ---
Past Medical History Past Medical History: CAD, Hypertension, [place], Other Additional Past Medical Histor: VITILIGO, Peripheral neuropathy, DDD,LUPUS Past Surgical History: Other Additional Past Surgical Histo: thyroidectomy Smoking Status: Former Smoker Alcohol Use: None Drug Use: Marijuana Adult General Chief Complaint Chief Complaint: DIFFICULTY SWALLOWING HPI HPI Patient is a 70 year old female who has had difficult swallowing for about a month now. The patient states that she is able to tolerate liquids at times but seemingly less so each day. Much more trouble solid food. She has not had a fever or abdominal pain. Mild nonproductive cough. No chest pain except with the swallowing. No recent trauma. Review of Systems Review of Systems Constitutional: Denies fever Eyes: Denies change in visual acuity or eye pain HENT: Reports sore throat/pain with swallowing Respiratory: Denies shortness of breath Cardiovascular: Denies chest pain GI: Denies abd pain : Denies dysuria Musculoskeletal: Denies back or extremity injury Integument: Denies rash or skin lesions Neurologic: Denies headache, focal weakness or sensory changes All other systems were reviewed and found to be within normal limits, except as documented in this note. Current Medications Current Medications Current Medications Medications (Trade) Dose Ordered Sig/Audrey Start Time Stop Time Status Last Admin Dose Admin Iohexol (Omnipaque 300 Mg/ml) 70 ml 1X ONCE 05/28/21 08:30 05/28/21 08:31 DC 05/28/21 08:30 70 ML Potassium Chloride/Water 100 ml @ 100 mls/hr 1X ONCE 05/28/21 10:00 05/28/21 10:59 DC 05/28/21 09:48 100 MLS/HR Potassium Chloride (Klor-Con) 60 meq 1X ONCE 05/28/21 09:30 05/28/21 09:31 DC 05/28/21 09:49 60 MEQ Allergies Allergies Allergies Coded Allergies Type Severity Reaction Last Updated Verified No Known Drug Allergies 05/28/21 No Physical Exam Physical Exam Constitutional: Well developed, well nourished, no acute distress, non-toxic appearance. HENT: Normocephalic, atraumatic, bilateral external ears normal, mucosa dry, nose normal. Eyes: EOMI, conjunctiva normal, no discharge. Neck: Normal range of motion, supple, no stridor, no meningeal signs, left thyroid nodules palpable but trachea is midline. Cardiovascular: Regular rate and rhythm Lungs & Thorax: Bilateral breath sounds clear to auscultation Abdomen: Soft, no tenderness or obvious masses Skin: Warm, dry, no erythema, no rash. Extremities: No tenderness, no cyanosis, no clubbing, ROM intact, no edema. Neurologic: Alert and oriented, normal motor function, normal sensory function, no focal deficits noted. Psychologic: Affect normal, judgement normal, mood normal. Current Patient Data Vital Signs Vital Signs Date Time Temp Pulse Resp B/P (MAP) Pulse Ox O2 Delivery O2 Flow Rate FiO2 05/28/21 10:52 85 17 147/82 (103) 98 Room Air 05/28/21 08:04 98.7 98.7 Lab Values Laboratory Tests Test 05/28/21 08:19 White Blood Count 4.4 x10^3/uL (4.0-11.0) Red Blood Count 5.38 x10^6/uL (3.50-5.40) Hemoglobin 11.4 g/dL (12.0-15.5) L Hematocrit 35.2 % (36.0-47.0) L Mean Corpuscular Volume 66 fL (79-100) L Mean Corpuscular Hemoglobin 21 pg (25-35) L Mean Corpuscular Hemoglobin Concent 32 g/dL (31-37) Red Cell Distribution Width 16.6 % (11.5-14.5) H Platelet Count 251 x10^3/uL (140-400) Neutrophils (%) (Auto) 67 % (31-73) Lymphocytes (%) (Auto) 19 % (24-48) L Monocytes (%) (Auto) 10 % (0-9) H Eosinophils (%) (Auto) 1 % (0-3) Basophils (%) (Auto) 3 % (0-3) Neutrophils # (Auto) 3.0 x10^3/uL (1.8-7.7) Lymphocytes # (Auto) 0.9 x10^3/uL (1.0-4.8) L Monocytes # (Auto) 0.4 x10^3/uL (0.0-1.1) Eosinophils # (Auto) 0.0 x10^3/uL (0.0-0.7) Basophils # (Auto) 0.1 x10^3/uL (0.0-0.2) Platelet Estimate Adequate (ADEQUATE) Hypochromasia Slight Microcytosis Mod Target Cells Present Porsha Cells Present Sodium Level 137 mmol/L (136-145) Potassium Level 2.2 mmol/L (3.5-5.1) *L Chloride Level 100 mmol/L (98-107) Carbon Dioxide Level 25 mmol/L (21-32) Anion Gap 12 (6-14) Blood Urea Nitrogen 7 mg/dL (7-20) Creatinine 0.6 mg/dL (0.6-1.0) Estimated GFR (Cockcroft-Gault) 119.6 BUN/Creatinine Ratio 12 (6-20) Glucose Level 146 mg/dL (70-99) H Calcium Level 8.7 mg/dL (8.5-10.1) Magnesium Level 1.6 mg/dL (1.8-2.4) L Total Bilirubin 0.2 mg/dL (0.2-1.0) Aspartate Amino Transferase (AST) 14 U/L (15-37) L Alanine Aminotransferase (ALT) 14 U/L (14-59) Alkaline Phosphatase 61 U/L (46-116) Total Protein 7.5 g/dL (6.4-8.2) Albumin 3.5 g/dL (3.4-5.0) Albumin/Globulin Ratio 0.9 (1.0-1.7) L Laboratory Tests 05/28/21 08:19 Laboratory Tests 05/28/21 08:19 EKG EKG [] Radiology/Procedures Radiology/Procedures [] Impressions: PATIENT: MONET TURNER AACCOUNT: [id number]#: [id number] : 1950 LOCATION: ER AGE: 70 SEX: F EXAM STATUS: REG ER ORD. PHYSICIAN: FINA EARLY MD REASON: dysphagia PROCEDURE: CHEST AP ONLY AP chest. HISTORY: Dysphasia AP view was taken of the chest. Lungs are clear. Heart is normal in size. There is no effusion. IMPRESSION: 1. No acute infiltrates. Electronically signed by: Giacomo Amin MD (05/28/2021 8:29 AM) [facility] DICTATED and SIGNED BY: GIACOMO AMIN MD DATE: 05/28/21 [id number] PATIENT: MONET TURNER ACCOUNT: [id number] : 1950 LOCATION: ER AGE: 70 SEX: F EXAM STATUS: REG ER ORD. PHYSICIAN: FINA EARLY MD REASON: dysphagia PROCEDURE: CT SOFT TISSUE NECK W/CONTRAST CT NECK SOFT TISSUE WITH IV CONTRAST History: Dysphagia Comparison: None. Technique: CT of the neck with intravenous contrast. Findings: Mucosa: No mass in the nasal cavity, nasopharynx, oral cavity, oropharynx, larynx, hypopharynx, or proximal trachea/esophagus. Oral cavity is obscured by dental artifact. Glands: Enlarged heterogeneous left thyroid gland with hypoattenuating nodular approximately 1.7 cm. Enlarged thyroid causes leftward deviation of the trachea and esophagus. Surgically absent right thyroid. The bilateral parotid and submandibular glands are unremarkable. Nodes: No pathologically enlarged or necrotic cervical lymph nodes. Vessels: Heavy atherosclerotic calcification of the proximal left internal carotid, Limited evaluation of known angiogram study, likely greater than 75 percent stenosis. Tortuous course of the proximal left internal carotid Bones: Multilevel degenerative changes of the cervical spine with upper cervical facet hypertrophy and lower cervical disc space narrowing and uncovertebral hypertrophy. Potential for foraminal stenoses greatest at C5-C6 and C6-C7. Other: Peripheral left upper lobe nodule measuring 4 mm (axial image 27). Cor onary artery calcifications partially visualized. Impression: 1. Enlarged heterogeneous left thyroid gland with rightward deviation of the trachea and esophagus. Multiple left thyroid nodules, largest measures approximately 1.7 cm. Recommend thyroid ultrasound for further evaluation. 2. Severe left ICA stenosis at the carotid bulb. Consider carotid ultrasound for further evaluation. 3. Multilevel disc and facet disease of the cervical spine with potential for foraminal stenoses at multiple levels. 4. Left upper lobe pulmonary nodule measuring 4 mm. Recommend follow-up according to 2017 Fleischner Society Guidelines for solid pulmonary nodules: <6 mm: In a low risk patient, no routine follow-up. In a high risk patient (history of smoking or other known risk factors), optional CT at 12 months. Certain paitents with suspicious nodule morphology, upper lobe location, or both may warrant 12-month follow-up. ------ Exposure: One or more of the following individualized dose reduction techniques were utilized for this examination: 1. Automated exposure control 2. Adjustment of the mA and/or kV according to patient size 3. Use of iterative reconstruction technique. Electronically signed by: Mitchell Noe MD (05/28/2021 10:11 AM) [id number] DICTATED and SIGNED BY: MITCHELL NOE MD DATE: 05/28/21 [id number] Course & Med Decision Making Course & Med Decision Making Pertinent Labs and Imaging studies reviewed. (See chart for details) [] There is a 7-year-old female with dysphagia. CT scan of the neck demonstrates a left-sided thyroid nodule which is large enough to cause deviation of the trachea and the esophagus to the right. It is quite possible that these are causing or at least related to this patient's symptoms. On lab work potassium was very low at 2.2. Initially we were going to keep the patient in the hospital here, after speaking with surgery though it has become apparent that the patient may need ENT. [place]. Accepting physicians are Dr. Dai and Dr. Mendiola. Patient is in stable condition at this time. Please note she has gotten 60 mEq of potassium chloride orally and 10 IV at this point. Dragon Disclaimer Dragon Disclaimer This electronic medical record was generated, in whole or in part, using a voice recognition dictation system. Departure Departure Impression: Primary Impression: Hypokalemia Additional Impressions: Thyroid mass Dysphagia Disposition: 02 SHORT TERM HOSPITAL Condition: STABLE Referrals: Zulay RICE MD (PCP) Problem Qualifiers FINA EARLY MD May 28, 2021 12:18
[2021-05-28 12:40] VITALS: BP 134/81
== END 2021-05-28 13:55 | disposition short-term general hospital (02) ==
LOC: ER 07:45
DX: R13.10 Dysphagia, unspecified (principal); E87.6 Hypokalemia; E07.9 Disorder of thyroid, unspecified; I25.10 Atherosclerotic heart disease of native coronary artery without angina pectoris; I10 Essential (primary) hypertension; I25.2 Old myocardial infarction; Z87.891 Personal history of nicotine dependence
CPT/HCPCS: 36415; 70491; 71045; 80053; 83735; 85025; 96365; 99285; J3480; Q9967

== ENCOUNTER → 2021-07-09 | Outpatient (CLI) | payer OTHER ==
[2021-07-10 14:15] LABS: CALCIUM PTH 9.3 mg/dL (8.7-10.3); CREATININE PTH 0.51 mg/dL (0.57-1.00); PTH INTACT 33 pg/mL (15-65)
== END ==
LOC: LAB 09:55
PROVIDERS: ATTEND Otolaryngology
DX: R13.14 Dysphagia, pharyngoesophageal phase (principal); E04.9 Nontoxic goiter, unspecified; Z90.09 Acquired absence of other part of head and neck
CPT/HCPCS: 36415; 82310; 83970

== ENCOUNTER → 2021-08-06 | Outpatient (CLI) | payer OTHER ==
[2021-08-06 16:02] LABS: FREE T4 1.13 ng/dL (0.76-1.46); THYROID STIM HORMONE (TSH) 1.6 uIU/mL (0.358-3.74)
== END ==
LOC: LAB 14:56
PROVIDERS: ATTEND Otolaryngology
DX: Z90.09 Acquired absence of other part of head and neck (principal)
CPT/HCPCS: 36415; 84439; 84443